=== PATIENT | female | born 1950 ===

== ENCOUNTER 2017-05-30 23:20 | Inpatient (IN) | payer MEDICARE, BC ==
[2017-05-30 23:20] VITALS: BMI 22.6
--- NOTE | 2017-05-30 23:54 | C.PDOC ---
History Of Present Illness 66 year old female presents to the ED c/o 5 day history of abdominal pain that she rates at 5/10 discomfort. Patient also reports not having any bowel movements for the past 5 days as well. Patient denies nausea, vomit, diarrhea. Time Seen by Provider: 05/30/17 23:53 Chief Complaint (Nursing): Abdominal Pain History Per: Patient History/Exam Limitations: no limitations Onset/Duration Of Symptoms: Days Current Symptoms Are (Timing): Worse Context: Other Severity: Severe Pain Scale Rating Of: 7 Location Of Pain/Discomfort: Diffuse Radiation Of Pain To:: None Quality Of Discomfort: Cramping, "Pain" Associated Symptoms: Constipation. denies: Nausea, Vomiting, Diarrhea Exacerbating Factors: None Alleviating Factors: None Last Bowel Movement: Days Ago Recent travel outside of the [place]: No Additional History Per: Family Abnormal Vaginal Bleeding: No Past Medical History Reviewed: Historical Data, Nursing Documentation, Vital Signs Vital Signs: Last Vital Signs Temp 97.4 F L 05/30/17 23:25 Pulse 99 H 05/31/17 02:27 Resp 20 05/31/17 02:27 BP 104/65 05/31/17 02:27 Pulse Ox 98 05/31/17 03:18 - Medical History PMH: Fractures (OLD FX.LEFT HAND), HTN, Hypothyroidism Surgical History: [place] [facility] [place] [facility] CORONAR ARTERIOGR-2 CATH (05/26/13) LT HEART ANGIOCARDIOGRAM (05/26/13) RT/LEFT HEART CARD CATH (05/26/13) Family History: States: No Known Family Hx - Social History Hx Alcohol Use: No Hx Substance Use: No Review Of Systems Constitutional: Negative for: Fever, Chills Eyes: Negative for: Vision Change ENT: Negative for: Throat Pain Cardiovascular: Negative for: Chest Pain Respiratory: Negative for: Shortness of Breath Gastrointestinal: Positive for: Abdominal Pain, Constipation. Negative for: Nausea, Vomiting, Diarrhea Genitourinary: Negative for: Dysuria, Hematuria Musculoskeletal: Negative for: Back Pain Skin: Negative for: Rash Neurological: Negative for: Weakness, Numbness Psych: Negative for: Anxiety Physical Exam - Physical Exam Appears: Non-toxic Skin: Warm, Dry, Jaundice Head: Normacephalic Eye(s): bilateral: Normal Inspection, Other (icteric sclera) Oral Mucosa: Moist Lips: Other (dry) Neck: Supple Chest: Symmetrical, Other (cabg scar) Cardiovascular: Rhythm Regular (tachycardic), No Murmur Respiratory: No Rales, No Rhonchi, No Wheezing Gastrointestinal/Abdominal: Soft, Tenderness (diffuse), Distention (diffuse), Guarding (voluntary), Rebound (mild) Rectal: No Blood Streaked Stool, No Mass, No Tenderness, Other (rectal vault empty, no stool of any color present ) Back: No CVA Tenderness Extremity: Normal ROM Extremity: Bilateral: Atraumatic Pulses: Left Dorsalis Pedis: Normal, Right Dorsalis Pedis: Normal Neurological/Psych: Oriented x3 Gait: Unable To Assess ED Course And Treatment - Laboratory Results Result Diagrams: 05/31/17 00:18 05/31/17 00:18 ECG: Interpreted By Me, Viewed By Me ECG Rhythm: Atrial Fibrillation (120), Nonspecific Changes (occ pvc's) O2 Sat by Pulse Oximetry: 98 (ON RA) Pulse Ox Interpretation: Normal - Radiology CXR: Interpreted by Me, Viewed By Me CXR Interpretation: Yes: Cardiomegaly, Other (vabg, mvr). No: Infiltrates, Fracture - CT Scan/US CT abd/pelvis Other Rad Studies (CT/US): Read By Radiologist, Radiology Report Reviewed CT/US Interpretation: EXAM: CT Abdomen and Pelvis With Intravenous Contrast. CLINICAL HISTORY: 66 years old, female; Pain; Abdominal pain; Generalized; Additional info: Diffuse abd pain. TECHNIQUE: Axial computed tomography images of the abdomen and pelvis with intravenous. contrast. All CT scans at this facility use one or more dose reduction techniques, viz.: automated. exposure control; ma/kV adjustment per patient size (including targeted exams where dose is. matched to indication; i.e. head); or iterative reconstruction technique. CONTRAST: 100 mL of [id number] administered intravenously. COMPARISON : No relevant prior studies available. FINDINGS: Lung bases: Calcified granuloma left lung base. Atelectasis right mid and lower lung. ABDOMEN: Liver: Unremarkable. No mass. Gallbladder and bile ducts: Unremarkable. No calcified stones. No ductal dilation. Pancreas: Unremarkable. No mass. No ductal dilation. Spleen: Unremarkable. No splenomegaly. Adrenals: Unremarkable. No mass. Kidneys and ureters: Scarring upper pole left kidney. Subcentimeter right renal cysts. No hydronephrosis. Stomach and bowel: Unremarkable. No obstruction. No mucosal thickening. Appendix: No findings to suggest acute appendicitis. PELVIS: Bladder: Bladder wall thickening with surrounding inflammation concerning for cystitis. Reproductive: 2.1 cm left ovarian cyst. Probable calcified uterine fibroids.ABDOMEN and PELVIS: Intraperitoneal space: Unremarkable. No free air. No significant fluid collection. Bones/joints: Median sternotomy. No acute fracture. No dislocation. Soft tissues: Multiple rectus sheath hematomas the largest of which measures 4 cm in thickness in. the left abdominal wall. The left-sided hematoma extends from just below the ribs to the pubic bone. Vasculature: 8 mm peripherally calcified splenic artery aneurysm. Lymph nodes: Unremarkable. No enlarged lymph nodes. IMPRESSION: 1. Bladder wall thickening with surrounding inflammation concerning for cystitis. 2. Multiple rectus sheath hematomas the largest of which measures 4 cm in thickness in the left. abdominal wall. The left-sided hematoma extends from just below the ribs to the pubic bone. Thank you for allowing us to participate in the care of your patient. Dictated and Authenticated by: Pelon Conn MD. 05/31/2017 3:05 AM Eastern Time ([place] & [place]) Progress Note: Plan: - Labs. - EKG. - VBG. - Morphine 1 mg IVP. - Protonix 40 mg IVP. - IV fluids. - UA. 3:[address] morris - icu - ok with icu admission Critical Care Time - Critical Care Note Total Time (in mins): 47 Documented critical care: time excludes all time spent performing seperately billable procedures. Disposition Discussed With : Jose Souza Comment: accepted the pt on his service and took over the care at 3:30 AM Doctor Will See Patient In The: ED Counseled Patient/Family Regarding: Studies Performed, Diagnosis - Disposition Disposition: HOSPITALIZED Disposition Time: 23:54 Condition: GUARDED Forms: [facility] ([place]) - POA Present On Arrival: Poor Glycemic Control - Clinical Impression Clinical Impression: Abdominal pain, Sepsis, UTI (urinary tract infection), Coumadin toxicity, Abdominal wall hematoma - Scribe Statement The provider has reviewed the documentation as recorded by the Scribe Kash Saul All medical record entries made by the Scribe were at my direction and personally dictated by me. I have reviewed the chart and agree that the record accurately reflects my personal performance of the history, physical exam, medical decision making, and the department course for this patient. I have also personally directed, reviewed, and agree with the discharge instructions and disposition. Decision To Admit - Pt Status Changed To: Hospital Disposition Of: Inpatient - Admit Certification Admit to Inpatient:: After my assessment, the patient will require hospitalization for at least two midnights. This is because of the severity of symptoms shown, intensity of services needed, and/or the medical risk in this patient being treated as an outpatient. - InPatient: Physician Admission Certification:: After my assessment, the patient will require hospitalization for at least two midnights. This is because of the severity of symptoms shown, intensity of services needed, and/or the medical risk in this patient being treated as an outpatient. - . Bed Request Type: ICU Admitting Physician: Jose Souza Patient Diagnosis: Abdominal pain, Sepsis, UTI (urinary tract infection), Coumadin toxicity, Abdominal wall hematoma
[2017-05-30] MEDS ORDERED: Sodium Chloride 0.9% 1,000 ML IV ONE (23:55)
[2017-05-31 00:27] LABS: BASO % 0.1 % (0.0-2.0); HEMOGLOBIN 8.8 g/dL (11.0-16.0); LYMPH # 1.4 K/uL (1.0-4.3); LYMPH % 5.9 % (20.0-40.0); MEAN CORPUSCULAR HEMOGLOBIN 32.1 pg (27.0-31.0); MEAN CORPUSCULAR HGB CONC 33.1 g/dL (33.0-37.0); MEAN PLATELET VOLUME 9.9 fL (7.2-11.7); MONO % 4.5 % (0.0-10.0); NEUT # 20.8 K/uL (1.8-7.0); NEUT % 89.5 % (50.0-75.0); PLATELET COUNT 248 K/uL (130-400); RBC 2.75 Mil/uL (3.80-5.20); RED CELL DISTRIBUTION WIDTH 14.1 % (11.5-14.5); WHITE BLOOD COUNT 23.3 K/uL (4.8-10.8)
[2017-05-31] MEDS ORDERED: Sodium Chloride 0.9% 1,000 ML ONE ×2 (00:35→01:12)
[2017-05-31] MEDS ORDERED: Morphine 4 MG/ML VIAL ONE (00:36)
[2017-05-31 00:38] LABS: ALBUMIN 4.2 g/dL (3.5-5.0); CALCIUM 9.4 mg/dl (8.6-10.4)
[2017-05-31 00:47] LABS: VENOUS BLOOD GAS BASE EXCESS -7.7 mmol/L (0.0-2.0); VENOUS BLOOD GAS PCO2 38 mmHg (40-60); VENOUS BLOOD GAS PO2 17 mm/Hg (30-55); VENOUS BLOOD PH 7.29 (7.32-7.43)
[2017-05-31] MEDS ORDERED: Piperacillin/Tazobact 3.375 gm 100 ML IVPB STA (00:48)
[2017-05-31 00:57] LABS: INR 12.4
[2017-05-31 00:59] LABS: PROTHROMBIN TIME 153.9 SECONDS (9.7-12.2)
[2017-05-31] MEDS ORDERED: Phytonadione 2.5 MG/0.5 TAB TAB PO STA (01:01)
[2017-05-31] MEDS ORDERED: Sodium Chloride 0.9% 1,000 ML IV ONE (01:03)
[2017-05-31] MEDS ORDERED: Piperacill/Tazo 3.375gm in Dex 3.375 GM/50 ML BAG IVPB STA (01:04)
[2017-05-31 01:24] LABS: LYMPHOCYTE 6 % (20-40); MONOCYTE 2 % (0-10); NEUTROPHIL 92 % (50-75); PLATELET ESTIMATE NORMAL (NORMAL); TOTAL CELLS COUNTED 100
[2017-05-31] MEDS ORDERED: Iodixanol 320 MG/ML 100 ML BOTTLE IV ONE (01:52)
[2017-05-31 03:15] LABS: SQUAMOUS EPITHIAL 8 /hpf (0-5); URINE BACTERIA RARE (<OCC); URINE BILIRUBIN NEGATIVE (NEGATIVE); URINE BLOOD NEGATIVE (NEGATIVE); URINE CLARITY Hazy (Clear); URINE COLOR Yellow (YELLOW); URINE GLUCOSE (UA) NORMAL (Normal); URINE LEUKOCYTE ESTERASE 2+ Leu/uL (Negative); URINE PROTEIN 1+ mg/dL (NEGATIVE); URINE UROBILINOGEN NORMAL mg/dL (0.2-1.0)
[2017-05-31] MEDS: Sodium Chloride 0.9% 1,000 ML IV SCH ×4 (04:05→20:33)
[2017-05-31 06:06] LABS: BASO % 0.1 % (0.0-2.0); HEMOGLOBIN 6.7 g/dL (11.0-16.0); LYMPH # 1.9 K/uL (1.0-4.3); LYMPH % 10.5 % (20.0-40.0); MEAN CELL VOLUME 96.1 fL (81.0-99.0); MEAN CORPUSCULAR HEMOGLOBIN 31.8 pg (27.0-31.0); MEAN CORPUSCULAR HGB CONC 33.1 g/dL (33.0-37.0); MEAN PLATELET VOLUME 10.1 fL (7.2-11.7); MONO # 0.8 K/uL (0.0-0.8); MONO % 4.5 % (0.0-10.0); NEUT # 15.7 K/uL (1.8-7.0); NEUT % 84.9 % (50.0-75.0); RBC 2.12 Mil/uL (3.80-5.20); RED CELL DISTRIBUTION WIDTH 14.5 % (11.5-14.5); WHITE BLOOD COUNT 18.5 K/uL (4.8-10.8)
[2017-05-31 06:23] LABS: ALBUMIN 3.2 g/dL (3.5-5.0); ALT/SGPT 18 U/L (9-52); AST/SGOT 32 U/L (14-36); BLOOD UREA NITROGEN 14 mg/dL (7-17); CALCIUM 8.1 mg/dl (8.6-10.4); GFR AFRICAN-AMERICAN > 60; GFR NON-AFRICAN AMERICAN > 60
[2017-05-31 08:06] LABS: B-TYPE NATRIURETIC PEPTIDE 1770 pg/mL (0-900)
[2017-05-31 08:49] LABS: IRON 72 ug/dL (37-170)
--- NOTE | 2017-05-31 08:58 | CP.PCM.CON ---
History of Present Illness - History of Present Illness History of Present Illness: 66 F on coumedin for mechanical mitral valve and h/o afib, came to hospital for c/o abd pain and swelling noticed for last 5 days, getting worse. C/o poor intake and constipation. Patient found to have INR of 15 and rectus sheath hematoma, clinically dry, elevated lactic acid and cystis on ct abd. Patent has admitted to ICU received 2 lit ivf, finished 1st unit ffp, initial hemoglobin 8.5 repeat 6.7 without hypotension or visible swelling post hydration likely form hemodiluation. Maintained vitals, but c/o pain in lower abd. Denies any new meds, nsaids, or change in dose of coumedin. PMH as above Allergies nkda Social denies smoking alocohol or illicit durgs Family history not contributory Meds as per the patient takes only coumedin 2mg Review of Systems - Review of Systems All systems: reviewed and no additional remarkable complaints except (HPI) Past Patient History - Past Medical History & Family History Past Medical History?: Yes - Past Social History Smoking Status: Never Smoked Alcohol: None Drugs: Denies Home Situation {Lives}: With Family Domestic Violence: Negative - CARDIAC Hx Cardiac Disorders: Yes Hx Hypertension: Yes - PULMONARY Hx Respiratory Disorders: No - NEUROLOGICAL Hx Neurological Disorder: Yes HX Cerebrovascular Accident: Yes Hx Dizziness: Yes - HEENT Hx HEENT Problems: No - RENAL Hx Chronic Kidney Disease: No - ENDOCRINE/METABOLIC Hx Endocrine Disorders: Yes Hx Hypothyroidism: Yes - HEMATOLOGICAL/ONCOLOGICAL Hx Blood Disorders: Yes Hx Blood Transfusion Reaction: Yes Hx Bruising: Yes - INTEGUMENTARY Hx Dermatological Problems: No - MUSCULOSKELETAL/RHEUMATOLOGICAL Hx Musculoskeletal Disorders: Yes Hx Falls: Yes Hx Fractures: Yes (OLD FX.LEFT HAND) - GASTROINTESTINAL Hx Gastrointestinal Disorders: No - GENITOURINARY/GYNECOLOGICAL Hx Genitourinary Disorders: No - PSYCHIATRIC Hx Psychophysiologic Disorder: No Hx Substance Use: No - SURGICAL HISTORY Hx Surgeries: Yes Hx Appendectomy: Yes Hx Open Heart Surgery: Yes - ANESTHESIA Hx Anesthesia: Yes Hx Anesthesia Reactions: No Hx Malignant Hyperthermia: No Meds Allergies/Adverse Reactions: Allergies Allergy/AdvReac Type Severity Reaction Status Date / Time No Known Allergies Allergy Verified 05/30/17 23:29 - Medications Medications: Current Medications Sodium Chloride (Sodium Chloride 0.9%) 1,000 mls @ 100 mls/hr IV .Q10H ONE Stop: 05/31/17 09:54 Last Admin: 05/31/17 00:41 Dose: 100 mls/hr Piperacillin Sod/Tazobactam (Sod 3.375 gm/ Sodium Chloride) 100 mls @ 200 mls/ hr IVPB Q8H [facility] PRN Reason: Protocol Sodium Chloride (Sodium Chloride 0.9%) 1,000 mls @ 125 mls/hr IV .Q8H [facility] Last Admin: 05/31/17 04:05 Dose: 125 mls/hr Pantoprazole Sodium (Protonix Inj) 40 mg IVP DAILY [facility] Physical Exam - Additional Findings Additional findings: * HEENT NANY * Neck supple * Chest Clear * CVS Regular on exam, no murmur * PA brusing noted on the skin in midabd, tender b/l left > right, bs decreased * Ext no edema * [employer]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 * Skin slight lower in turgor Results - Vital Signs Recent Vital Signs: Last Vital Signs Temp 98.3 F 05/31/17 08:00 Pulse 105 H 05/31/17 08:40 Resp 21 05/31/17 08:40 BP 111/67 05/31/17 07:47 Pulse Ox 100 05/31/17 08:40 - Labs Result Diagrams: 05/31/17 06:01 05/31/17 06:01 Labs: Laboratory Results - last 24 hr 05/31/17 05/31/17 05/31/17 00:18 00:18 00:18 WBC 23.3 H D RBC 2.75 L Hgb 8.8 L D Hct 26.7 L MCV 97.0 D MCH 32.1 H MCHC 33.1 RDW 14.1 Plt Count 248 MPV 9.9 Neut % (Auto) 89.5 H Lymph % (Auto) 5.9 L Stanley % (Auto) 4.5 Eos % (Auto) 0.0 Baso % (Auto) 0.1 Neut # (Auto) 20.8 H Lymph # (Auto) 1.4 Stanley # (Auto) 1.0 H Eos # (Auto) 0.0 Baso # (Auto) 0.0 Neutrophils % (Manual) 92 H Lymphocytes % (Manual) 6 L Monocytes % (Manual) 2 Platelet Estimate Normal RBC Morphology Normal PT 153.9 H* INR 12.4 APTT 95 H pO2 VBG pH VBG pCO2 VBG HCO3 VBG Total CO2 VBG O2 Sat (Calc) VBG Base Excess VBG Potassium Glucose Lactate Crit Value Called To Crit Value Called By Crit Value Read Back Blood Gas Notified Time Sodium 145 Potassium 4.8 Chloride 106 Carbon Dioxide 16 L Anion Gap 28 H BUN 14 Creatinine 1.3 H Est GFR ( Amer) 50 Est GFR (Non-Af Amer) 41 Random Glucose 188 H Lactic Acid Calcium 9.4 Phosphorus Magnesium Total Bilirubin 2.2 H AST 44 H ALT 10 Alkaline Phosphatase 69 NT-Pro-B Natriuret Pep Total Protein 8.2 Albumin 4.2 Globulin 4.0 H Albumin/Globulin Ratio 1.0 Lipase 86 Venous Blood Potassium Urine Color Urine Clarity Urine pH Ur Specific [place] Urine Protein Urine Glucose (UA) Urine Ketones Urine Blood Urine Nitrate Urine Bilirubin Urine Urobilinogen Ur Leukocyte Esterase Urine WBC (Auto) Urine RBC (Auto) Ur Squamous Epith Cells Urine Bacteria Stool Occult Blood Blood Type Antibody Screen 05/31/17 05/31/17 05/31/17 00:26 00:31 00:42 WBC RBC Hgb Hct MCV MCH MCHC RDW Plt Count MPV Neut % (Auto) Lymph % (Auto) Stanley % (Auto) Eos % (Auto) Baso % (Auto) Neut # (Auto) Lymph # (Auto) Stanley # (Auto) Eos # (Auto) Baso # (Auto) Neutrophils % (Manual) Lymphocytes % (Manual) Monocytes % (Manual) Platelet Estimate RBC Morphology PT INR APTT pO2 17 L VBG pH 7.29 L VBG pCO2 38 L VBG HCO3 16.8 VBG Total CO2 19.5 L VBG O2 Sat (Calc) 22.9 L VBG Base Excess -7.7 L VBG Potassium 4.7 Glucose 192 H Lactate 8.8 H* Crit Value Called To Dr mary Crit Value Called By Amy granados rt Crit Value Read Back Y Blood Gas Notified Time 47 Sodium 144.0 Potassium Chloride 108.0 H Carbon Dioxide Anion Gap BUN Creatinine Est GFR ( Amer) Est GFR (Non-Af Amer) Random Glucose Lactic Acid Calcium Phosphorus Magnesium Total Bilirubin AST ALT Alkaline Phosphatase NT-Pro-B Natriuret Pep Total Protein Albumin Globulin Albumin/Globulin Ratio Lipase Venous Blood Potassium 4.7 Urine Color Urine Clarity Urine pH Ur Specific [place] Urine Protein Urine Glucose (UA) Urine Ketones Urine Blood Urine Nitrate Urine Bilirubin Urine Urobilinogen Ur Leukocyte Esterase Urine WBC (Auto) Urine RBC (Auto) Ur Squamous Epith Cells Urine Bacteria Stool Occult Blood Negative Blood Type B POSITIVE Antibody Screen Positive 05/31/17 05/31/17 05/31/17 03:05 06:01 06:01 WBC 18.5 H RBC 2.12 L Hgb 6.7 L D Hct 20.4 L MCV 96.1 MCH 31.8 H MCHC 33.1 RDW 14.5 Plt Count 198 MPV 10.1 Neut % (Auto) 84.9 H Lymph % (Auto) 10.5 L Stanley % (Auto) 4.5 Eos % (Auto) 0.0 Baso % (Auto) 0.1 Neut # (Auto) 15.7 H Lymph # (Auto) 1.9 Stanley # (Auto) 0.8 Eos # (Auto) 0.0 Baso # (Auto) 0.0 Neutrophils % (Manual) Lymphocytes % (Manual) Monocytes % (Manual) Platelet Estimate RBC Morphology PT INR APTT pO2 VBG pH VBG pCO2 VBG HCO3 VBG Total CO2 VBG O2 Sat (Calc) VBG Base Excess VBG Potassium Glucose Lactate Crit Value Called To Crit Value Called By Crit Value Read Back Blood Gas Notified Time Sodium 144 Potassium 4.3 Chloride 111 H Carbon Dioxide 19 L Anion Gap 18 BUN 14 Creatinine 0.9 Est GFR ( Amer) > 60 Est GFR (Non-Af Amer) > 60 Random Glucose 120 H Lactic Acid Calcium 8.1 L Phosphorus 3.3 Magnesium 1.7 Total Bilirubin 2.0 H AST 32 ALT 18 Alkaline Phosphatase 50 NT-Pro-B Natriuret Pep 1770 H Total Protein 6.5 Albumin 3.2 L D Globulin 3.3 Albumin/Globulin Ratio 1.0 Lipase Venous Blood Potassium Urine Color Yellow Urine Clarity Hazy Urine pH 5.0 Ur Specific [place] 1.015 Urine Protein 1+ H Urine Glucose (UA) Normal Urine Ketones Negative Urine Blood Negative Urine Nitrate Negative Urine Bilirubin Negative Urine Urobilinogen Normal Ur Leukocyte Esterase 2+ H Urine WBC (Auto) 37 H Urine RBC (Auto) 7 H Ur Squamous Epith Cells 8 H Urine Bacteria Rare Stool Occult Blood Blood Type Antibody Screen 05/31/17 06:01 WBC RBC Hgb Hct MCV MCH MCHC RDW Plt Count MPV Neut % (Auto) Lymph % (Auto) Stanley % (Auto) Eos % (Auto) Baso % (Auto) Neut # (Auto) Lymph # (Auto) Stanley # (Auto) Eos # (Auto) Baso # (Auto) Neutrophils % (Manual) Lymphocytes % (Manual) Monocytes % (Manual) Platelet Estimate RBC Morphology PT INR APTT pO2 VBG pH VBG pCO2 VBG HCO3 VBG Total CO2 VBG O2 Sat (Calc) VBG Base Excess VBG Potassium Glucose Lactate Crit Value Called To Crit Value Called By Crit Value Read Back Blood Gas Notified Time Sodium Potassium Chloride Carbon Dioxide Anion Gap BUN Creatinine Est GFR ( Amer) Est GFR (Non-Af Amer) Random Glucose Lactic Acid 2.8 H Calcium Phosphorus Magnesium Total Bilirubin AST ALT Alkaline Phosphatase NT-Pro-B Natriuret Pep Total Protein Albumin Globulin Albumin/Globulin Ratio Lipase Venous Blood Potassium Urine Color Urine Clarity Urine pH Ur Specific [place] Urine Protein Urine Glucose (UA) Urine Ketones Urine Blood Urine Nitrate Urine Bilirubin Urine Urobilinogen Ur Leukocyte Esterase Urine WBC (Auto) Urine RBC (Auto) Ur Squamous Epith Cells Urine Bacteria Stool Occult Blood Blood Type Antibody Screen Assessment & Plan - Assessment and Plan (Free Text) Assessment: * Spontaneous Rectus sheath bleeding due to coumedin coagulopathy, reason for toxicity not clear * Suspected cystitis upon CT * Leucocytosis * Mechanical mitral valve, h/o afib Plan: * Supportive care * FFP, to bring inr bet 2.5-3.5 * PRBC * Empiric abx started due to cystitis on CT and leucocytosis with ua and culture sent. * See orders for detail.
[2017-05-31 08:59] LABS: % IRON SATURATION 31 (20-55); TOTAL IRON BINDING CAPACITY 232 ug/dL (250-450)
[2017-05-31 09:03] LABS: FOLATE > 20.0 ng/mL
[2017-05-31] MEDS: Piperacillin/Tazobact 3.375 GM in Sodium Chloride 100 ML IVPB SCH ×2 (10:03→17:05)
--- NOTE | 2017-05-31 11:40 | RAD ---
HISTORY: Constipation. COMPARISON: Comparison made with CT scan abdomen pelvis 05/31/2017 at 2:03 a.m. FINDINGS: BOWEL: No evidence of acute mechanical bowel obstruction. Amount of stool was seen throughout the cecum ascending and transverse colon on prior CT scan of the abdomen and pelvis less well seen on this study as compared to prior CT BONES: Chronic anterior wedge compression deformity of the L1 segment less well visualized on this exam as compared to high-resolution CT scan. OTHER FINDINGS: Interval placement Dang catheter. IMPRESSION: No evidence acute mechanical bowel obstruction. Moderate amount of stool is seen within the cecum at ascending and transverse colon are less well visualized on the current study.
[2017-05-31] MEDS: Oxycodone/Acetaminophen 5/325 mg Tab PO PRN ×2 (13:55→21:31)
[2017-05-31 15:21] LABS: HEMOGLOBIN 7.3 g/dL (11.0-16.0); MEAN CELL VOLUME 90.6 fL (81.0-99.0); MEAN CORPUSCULAR HEMOGLOBIN 31.2 pg (27.0-31.0); MEAN CORPUSCULAR HGB CONC 34.4 g/dL (33.0-37.0); MEAN PLATELET VOLUME 9.1 fL (7.2-11.7); RBC 2.34 Mil/uL (3.80-5.20); RED CELL DISTRIBUTION WIDTH 16.5 % (11.5-14.5)
--- NOTE | 2017-05-31 15:21 | CT ---
PROCEDURE: CT scan abdomen and pelvis dated 05/31/2017 HISTORY: Diffuse abdominal pain COMPARISON: None. TECHNIQUE: Contiguous axial images of the abdomen and pelvis performed following intravenous injection of approximately 100 cc Visipaque 320 contrast material. Additional 2 beast sagittal and coronal reformats generated. Radiation dose: Total exam DLP = This CT exam was performed using one or more of the following dose reduction techniques: Automated exposure control, adjustment of the mA and/or kV according to patient size, and/or use of iterative reconstruction technique. FINDINGS: LOWER THORAX: Vague patchy opacity seen in the right lung base may represent atelectasis however developing lower lobe infiltrate to be excluded with followup radiographs. Cardiomegaly with enlarged left atrium. LIVER: The liver exhibits normal size and attenuation pattern without mass collection or calcification. Portal and splenic veins are opacified. There is a small discrete elliptical shaped low-attenuation structure in the Morison's pouch region representing an exophytic cyst arising from the inferomedial aspect of the liver. . This focus measures approximately 3 cm x 1.4 cm (with Hounsfield units ranging between made single digits to low 20s . Followup interval recommended to assess stability GALLBLADDER AND BILE DUCTS: Gallbladder is physiologically distended. Cholelithiasis. PANCREAS: The pancreas appears slightly atrophic. No obvious pancreatic masses collections or calcifications. SPLEEN: Spleen exhibits normal size though somewhat lobular contour. . There is a small area of increased attenuation along crotch of a lobule that could represent volume averaging artifact. . ADRENALS: No adrenal lesions. KIDNEYS AND URETERS: Kidneys demonstrate symmetric nephrograms. No evidence of nephrolithiasis or hydronephrosis. There appear to be at least 3 tiny low-attenuation foci right kidney which statistically likely represent cysts. Renal ultrasound followup could confirm. BLADDER: Urinary bladder exhibits thick-walled appearance with adjacent surrounding infiltration. Findings on most likely represent a cystitis however correlation with urinalysis recommended. REPRODUCTIVE: Apparent calcified uterine fibroid. . There is a small cystic focus in the left aspect of the pelvis possibly representing an adnexal cyst measuring 2.1 x 2.0 cm. Pelvic ultrasound followup could be performed to confirm. APPENDIX: Appendix is not seen with certainty. BOWEL: Evaluation of the bowel is limited due to the lack of oral contrast material. Stomach is distended with food debris liquid and air. Visualized loops of small bowel exhibit normal contour and caliber. No evidence acute mechanical small bowel obstruction. Stool and air seen throughout the large bowel. No definitive abnormal mural wall thickening. PERITONEUM: Unremarkable. No fluid collection. No free air. Note made of what appears to represent multiple abdominal rectus sheath hematomas. There is a large somewhat lobulated hematoma seen in the mid to lower portion of the left rectus sheath that measures approximately 14.5 cm cc x 7.12 cm trans by 5.0 cm AP. There is a apparent right-sided rectus sheath hematoma in the pelvis region that measures approximately 7.5 cm cc x 5.1 cm trans x 4.0 cm AP LYMPH NODES: Unremarkable. No enlarged lymph nodes. VASCULATURE: . There is a small splenic artery aneurysm No evidence of abdominal aortic or iliac artery aneurysms. BONES: Chronic anterior wedge compression deformity of the L1 segment. Mild multilevel degenerative spondylosis of the lower thoracic and lumbar spine. OTHER FINDINGS: None. IMPRESSION: There are multiple rectus sheath hematomas as described of uncertain etiology. Is there a history of coagulopathy this patient? Findings consistent with a cystitis with root bladder wall thickening and surrounding infiltration. Correlation with urinalysis. Probable small on cyst right kidney. Left ovarian cyst. Calcified uterine fibroid felt be present. Consider followup pelvic ultrasound Cholelithiasis. Questionable exophytic cyst arising from the inferomedial aspect of the liver extending into Osborne's pouch region. Followup interval recommended to assess stability. Note this report was placed in PA review folder folder for followup
--- NOTE | 2017-05-31 15:36 | RAD ---
PROCEDURE: CHEST RADIOGRAPH, 1 VIEW HISTORY: CODE SEPSIS COMPARISON: Comparison chest dated 01/30/2012 FINDINGS: LUNGS: Poor inspiration with low lung volumes, crowded bronchovascular markings and mild bibasilar atelectasis. Questionable small right effusion. PLEURA: No pneumothorax or pleural fluid seen. CARDIOVASCULAR: Sternotomy wires and prostatic mitral valve again noted. Cardiomegaly Aorta is ectatic and uncoiled. OSSEOUS STRUCTURES: No significant abnormalities. VISUALIZED UPPER ABDOMEN: Normal. OTHER FINDINGS: None. IMPRESSION: Poor inspiration with low lung volumes, crowded bronchovascular markings and mild bibasilar atelectasis.
[2017-05-31 15:44] LABS: INR 1.9
[2017-05-31] MEDS ORDERED: Sodium Chloride 0.9% 1,000 ML IV SCH (20:47)
--- NOTE | 2017-05-31 20:54 | CP.PCM.HP ---
History of Present Illness - History of Present Illness History of Present Illness: cc: abdominal pain x 1 week HPI: Pt is a 66 yo female At the ER, pt found to have rectus sheath hematoma on CT, but no GI obstruction noted. Pt appeared to be pale, and CBC showed pt had a hgb of 8.3 which dipped to 6.7 after hydration. 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 This would prob account for the rectus sheath hematoma found on CT of the abdomen and pelvis. Pt was admitted to ICU and coagulopathy was reversed with 2 units of FFP and vit K. Nevertheless pt still complained of pain from the hematoma and ice was applied to area to prevent more blood accumulation. > Pt also suspected of having chronic cystitis 2mdr tho thickened bladder garcia. Pt was given Zosyn 3.375 g q8 (creat clarance 43) and malone-cultured. Pt appeared to be stable and noted to have consumed at least part of her meal. Present on Admission - Present on Admission Any Indicators Present on Admission: Yes History of DVT/PE: Yes History of Uncontrolled Diabetes: No Urinary Catheter: No Decubitus Ulcer Present: No Review of Systems - Review of Systems Systems not reviewed;Unavailable: Unstable Vital Signs All systems: reviewed and no additional remarkable complaints except Review of Systems: borderline hypotensive - Constitutional Constitutional: Anorexia, Lethargy - Gastrointestinal Gastrointestinal: Abdominal Pain, Bloating, Cramping, Early Satiety - Genitourinary Genitourinary: Difficulty Urinating - Neurological Neurological: Abnormal Speech - Psychiatric Psychiatric: Confusion, Memory Loss Past Patient History - Infectious Disease Hx of Infectious Diseases: None - Tetanus Immunizations Tetanus Immunization: Unknown - Past Medical History & Family History Past Medical History?: Yes - Past Social History Smoking Status: Never Smoked Chewing Tobacco Use: No Cigar Use: No Alcohol: None Drugs: Denies Home Situation {Lives}: With Family Domestic Violence: Negative - CARDIAC Hx Cardiac Disorders: Yes Hx Hypertension: Yes Other/Comment: 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 - PULMONARY Hx Respiratory Disorders: No - NEUROLOGICAL Hx Neurological Disorder: Yes Hx Alzheimer's Disease: Yes (?) HX Cerebrovascular Accident: Yes Hx Dementia: Yes Hx Dizziness: Yes - HEENT Hx HEENT Problems: No - RENAL Hx Chronic Kidney Disease: No - ENDOCRINE/METABOLIC Hx Endocrine Disorders: Yes Hx Hypothyroidism: Yes - HEMATOLOGICAL/ONCOLOGICAL Hx Blood Disorders: Yes Hx Blood Transfusion Reaction: Yes Hx Bruising: Yes - INTEGUMENTARY Hx Dermatological Problems: No - MUSCULOSKELETAL/RHEUMATOLOGICAL Hx Musculoskeletal Disorders: Yes Hx Falls: Yes Hx Fractures: Yes (OLD FX.LEFT HAND) - GASTROINTESTINAL Hx Gastrointestinal Disorders: No - GENITOURINARY/GYNECOLOGICAL Hx Genitourinary Disorders: No - PSYCHIATRIC Hx Psychophysiologic Disorder: No Hx Substance Use: No - SURGICAL HISTORY Hx Surgeries: Yes Hx Appendectomy: Yes Hx Open Heart Surgery: Yes - ANESTHESIA Hx Anesthesia: Yes Hx Anesthesia Reactions: No Hx Malignant Hyperthermia: No Meds Allergies/Adverse Reactions: Allergies Allergy/AdvReac Type Severity Reaction Status Date / Time No Known Allergies Allergy Verified 05/30/17 23:29 Physical Exam - Constitutional Appears: No Acute Distress - Head Exam Head Exam: NORMAL INSPECTION, NORMOCEPHALIC - Eye Exam Eye Exam: Normal appearance Pupil Exam: NORMAL ACCOMODATION - ENT Exam ENT Exam: Mucous Membranes Moist - Neck Exam Neck exam: Positive for: Normal Inspection - Respiratory Exam Respiratory Exam: NORMAL BREATHING PATTERN - Cardiovascular Exam Cardiovascular Exam: REGULAR RHYTHM - GI/Abdominal Exam GI & Abdominal Exam: Hypoactive Bowel Sounds - Rectal Exam Rectal Exam: Deferred - Exam Exam: NORMAL INSPECTION External exam: NORMAL EXTERNAL EXAM - Extremities Exam Extremities exam: Positive for: normal inspection Results - Vital Signs Recent Vital Signs: Last Vital Signs Temp 98.5 F 05/31/17 20:00 Pulse 95 H 05/31/17 20:00 Resp 18 05/31/17 20:00 BP 117/70 05/31/17 19:47 Pulse Ox 99 05/31/17 20:00 - Labs Result Diagrams: 06/01/17 16:57 06/01/17 06:34 Labs: Laboratory Results - last 24 hr 05/31/17 05/31/17 05/31/17 00:18 00:18 00:18 WBC 23.3 H D RBC 2.75 L Hgb 8.8 L D Hct 26.7 L MCV 97.0 D MCH 32.1 H MCHC 33.1 RDW 14.1 Plt Count 248 MPV 9.9 Neut % (Auto) 89.5 H Lymph % (Auto) 5.9 L [place] % (Auto) 4.5 Eos % (Auto) 0.0 Baso % (Auto) 0.1 Neut # (Auto) 20.8 H Lymph # (Auto) 1.4 [place] # (Auto) 1.0 H Eos # (Auto) 0.0 Baso # (Auto) 0.0 Neutrophils % (Manual) 92 H Lymphocytes % (Manual) 6 L Monocytes % (Manual) 2 Platelet Estimate Normal RBC Morphology Normal PT 153.9 H* INR 12.4 APTT 95 H pO2 VBG pH VBG pCO2 VBG HCO3 VBG Total CO2 VBG O2 Sat (Calc) VBG Base Excess VBG Potassium Glucose Lactate Crit Value Called To Crit Value Called By Crit Value Read Back Blood Gas Notified Time Sodium 145 Potassium 4.8 Chloride 106 Carbon Dioxide 16 L Anion Gap 28 H BUN 14 Creatinine 1.3 H Est GFR ( Amer) 50 Est GFR (Non-Af Amer) 41 Random Glucose 188 H Lactic Acid Calcium 9.4 Phosphorus Magnesium Iron TIBC % Saturation Total Bilirubin 2.2 H AST 44 H ALT 10 Alkaline Phosphatase 69 NT-Pro-B Natriuret Pep Total Protein 8.2 Albumin 4.2 Globulin 4.0 H Albumin/Globulin Ratio 1.0 Lipase 86 Vitamin B12 Folate Venous Blood Potassium Urine Color Urine Clarity Urine pH Ur Specific [place] Urine Protein Urine Glucose (UA) Urine Ketones Urine Blood Urine Nitrate Urine Bilirubin Urine Urobilinogen Ur Leukocyte Esterase Urine WBC (Auto) Urine RBC (Auto) Ur Squamous Epith Cells Urine Bacteria Stool Occult Blood Blood Type Antibody Screen Antibody Identification Antigen Identification 05/31/17 05/31/17 05/31/17 00:26 00:31 00:42 WBC RBC Hgb Hct MCV MCH MCHC RDW Plt Count MPV Neut % (Auto) Lymph % (Auto) [place] % (Auto) Eos % (Auto) Baso % (Auto) Neut # (Auto) Lymph # (Auto) [place] # (Auto) Eos # (Auto) Baso # (Auto) Neutrophils % (Manual) Lymphocytes % (Manual) Monocytes % (Manual) Platelet Estimate RBC Morphology PT INR APTT pO2 17 L VBG pH 7.29 L VBG pCO2 38 L VBG HCO3 16.8 VBG Total CO2 19.5 L VBG O2 Sat (Calc) 22.9 L VBG Base Excess -7.7 L VBG Potassium 4.7 Glucose 192 H Lactate 8.8 H* Crit Value Called To Dr sapira Crit Value Called By Amy granados rt Crit Value Read Back Y Blood Gas Notified Time 47 Sodium 144.0 Potassium Chloride 108.0 H Carbon Dioxide Anion Gap BUN Creatinine Est GFR ( Amer) Est GFR (Non-Af Amer) Random Glucose Lactic Acid Calcium Phosphorus Magnesium Iron TIBC % Saturation Total Bilirubin AST ALT Alkaline Phosphatase NT-Pro-B Natriuret Pep Total Protein Albumin Globulin Albumin/Globulin Ratio Lipase Vitamin B12 Folate Venous Blood Potassium 4.7 Urine Color Urine Clarity Urine pH Ur Specific [place] Urine Protein Urine Glucose (UA) Urine Ketones Urine Blood Urine Nitrate Urine Bilirubin Urine Urobilinogen Ur Leukocyte Esterase Urine WBC (Auto) Urine RBC (Auto) Ur Squamous Epith Cells Urine Bacteria Stool Occult Blood Negative Blood Type B POSITIVE Antibody Screen Positive Antibody Identification Anti Fyb Antigen Identification Fyb Antigen - NEGATIVE 05/31/17 05/31/17 05/31/17 03:05 06:01 06:01 WBC 18.5 H RBC 2.12 L Hgb 6.7 L D Hct 20.4 L MCV 96.1 MCH 31.8 H MCHC 33.1 RDW 14.5 Plt Count 198 MPV 10.1 Neut % (Auto) 84.9 H Lymph % (Auto) 10.5 L [place] % (Auto) 4.5 Eos % (Auto) 0.0 Baso % (Auto) 0.1 Neut # (Auto) 15.7 H Lymph # (Auto) 1.9 [place] # (Auto) 0.8 Eos # (Auto) 0.0 Baso # (Auto) 0.0 Neutrophils % (Manual) Lymphocytes % (Manual) Monocytes % (Manual) Platelet Estimate RBC Morphology PT INR APTT pO2 VBG pH VBG pCO2 VBG HCO3 VBG Total CO2 VBG O2 Sat (Calc) VBG Base Excess VBG Potassium Glucose Lactate Crit Value Called To Crit Value Called By Crit Value Read Back Blood Gas Notified Time Sodium 144 Potassium 4.3 Chloride 111 H Carbon Dioxide 19 L Anion Gap 18 BUN 14 Creatinine 0.9 Est GFR ( Amer) > 60 Est GFR (Non-Af Amer) > 60 Random Glucose 120 H Lactic Acid Calcium 8.1 L Phosphorus 3.3 Magnesium 1.7 Iron TIBC % Saturation Total Bilirubin 2.0 H AST 32 ALT 18 Alkaline Phosphatase 50 NT-Pro-B Natriuret Pep 1770 H Total Protein 6.5 Albumin 3.2 L D Globulin 3.3 Albumin/Globulin Ratio 1.0 Lipase Vitamin B12 608 Folate > 20.0 Venous Blood Potassium Urine Color Yellow Urine Clarity Hazy Urine pH 5.0 Ur Specific [place] 1.015 Urine Protein 1+ H Urine Glucose (UA) Normal Urine Ketones Negative Urine Blood Negative Urine Nitrate Negative Urine Bilirubin Negative Urine Urobilinogen Normal Ur Leukocyte Esterase 2+ H Urine WBC (Auto) 37 H Urine RBC (Auto) 7 H Ur Squamous Epith Cells 8 H Urine Bacteria Rare Stool Occult Blood Blood Type Antibody Screen Antibody Identification Antigen Identification 05/31/17 05/31/17 05/31/17 06:01 08:24 15:19 WBC 13.0 H RBC 2.34 L Hgb 7.3 L Hct 21.2 L MCV 90.6 D MCH 31.2 H MCHC 34.4 RDW 16.5 H Plt Count 153 MPV 9.1 Neut % (Auto) Lymph % (Auto) [place] % (Auto) Eos % (Auto) Baso % (Auto) Neut # (Auto) Lymph # (Auto) [place] # (Auto) Eos # (Auto) Baso # (Auto) Neutrophils % (Manual) Lymphocytes % (Manual) Monocytes % (Manual) Platelet Estimate RBC Morphology PT INR APTT pO2 VBG pH VBG pCO2 VBG HCO3 VBG Total CO2 VBG O2 Sat (Calc) VBG Base Excess VBG Potassium Glucose Lactate Crit Value Called To Crit Value Called By Crit Value Read Back Blood Gas Notified Time Sodium Potassium Chloride Carbon Dioxide Anion Gap BUN Creatinine Est GFR ( Amer) Est GFR (Non-Af Amer) Random Glucose Lactic Acid 2.8 H Calcium Phosphorus Magnesium Iron 72 TIBC 232 L % Saturation 31 Total Bilirubin AST ALT Alkaline Phosphatase NT-Pro-B Natriuret Pep Total Protein Albumin Globulin Albumin/Globulin Ratio Lipase Vitamin B12 Folate Venous Blood Potassium Urine Color Urine Clarity Urine pH Ur Specific [place] Urine Protein Urine Glucose (UA) Urine Ketones Urine Blood Urine Nitrate Urine Bilirubin Urine Urobilinogen Ur Leukocyte Esterase Urine WBC (Auto) Urine RBC (Auto) Ur Squamous Epith Cells Urine Bacteria Stool Occult Blood Blood Type Antibody Screen Antibody Identification Antigen Identification 05/31/17 15:19 WBC RBC Hgb Hct MCV MCH MCHC RDW Plt Count MPV Neut % (Auto) Lymph % (Auto) [place] % (Auto) Eos % (Auto) Baso % (Auto) Neut # (Auto) Lymph # (Auto) [place] # (Auto) Eos # (Auto) Baso # (Auto) Neutrophils % (Manual) Lymphocytes % (Manual) Monocytes % (Manual) Platelet Estimate RBC Morphology PT 22.0 H D INR 1.9 D APTT 41 H D pO2 VBG pH VBG pCO2 VBG HCO3 VBG Total CO2 VBG O2 Sat (Calc) VBG Base Excess VBG Potassium Glucose Lactate Crit Value Called To Crit Value Called By Crit Value Read Back Blood Gas Notified Time Sodium Potassium Chloride Carbon Dioxide Anion Gap BUN Creatinine Est GFR ( Amer) Est GFR (Non-Af Amer) Random Glucose Lactic Acid Calcium Phosphorus Magnesium Iron TIBC % Saturation Total Bilirubin AST ALT Alkaline Phosphatase NT-Pro-B Natriuret Pep Total Protein Albumin Globulin Albumin/Globulin Ratio Lipase Vitamin B12 Folate Venous Blood Potassium Urine Color Urine Clarity Urine pH Ur Specific [place] Urine Protein Urine Glucose (UA) Urine Ketones Urine Blood Urine Nitrate Urine Bilirubin Urine Urobilinogen Ur Leukocyte Esterase Urine WBC (Auto) Urine RBC (Auto) Ur Squamous Epith Cells Urine Bacteria Stool Occult Blood Blood Type Antibody Screen Antibody Identification Antigen Identification
[2017-05-31] MEDS ORDERED: Dextrose 5%/0.9% NS 1,000 ML IV SCH (21:00)
[2017-06-01] MEDS: Piperacillin/Tazobact 3.375 GM in Sodium Chloride 100 ML IVPB SCH ×3 (01:01→17:58)
[2017-06-01 06:44] LABS: BASO # 0.1 K/uL (0.0-0.2); BASO % 0.4 % (0.0-2.0); EOS # 0.1 K/uL (0.0-0.7); EOS % 0.6 % (0.0-4.0); HEMOGLOBIN 8.9 g/dL (11.0-16.0); LYMPH # 1.3 K/uL (1.0-4.3); LYMPH % 9.7 % (20.0-40.0); MEAN CELL VOLUME 89.4 fL (81.0-99.0); MEAN CORPUSCULAR HEMOGLOBIN 30.8 pg (27.0-31.0); MEAN CORPUSCULAR HGB CONC 34.5 g/dL (33.0-37.0); MEAN PLATELET VOLUME 9.5 fL (7.2-11.7); MONO # 0.7 K/uL (0.0-0.8); MONO % 5.7 % (0.0-10.0); NEUT # 10.9 K/uL (1.8-7.0); NEUT % 83.6 % (50.0-75.0); PLATELET COUNT 157 K/uL (130-400); RBC 2.89 Mil/uL (3.80-5.20); RED CELL DISTRIBUTION WIDTH 15.9 % (11.5-14.5)
[2017-06-01 06:52] LABS: INR 1.9; PROTHROMBIN TIME 21.2 SECONDS (9.7-12.2)
[2017-06-01 08:00] LABS: B-TYPE NATRIURETIC PEPTIDE 4740 pg/mL (0-900)
[2017-06-01 08:01] LABS: ALB/GLOB RATIO 0.9 (1.0-2.1); ALBUMIN 3.1 g/dL (3.5-5.0); ALT/SGPT 20 U/L (9-52); AST/SGOT 38 U/L (14-36); BLOOD UREA NITROGEN 11 mg/dL (7-17); CALCIUM 8.2 mg/dl (8.6-10.4); GFR AFRICAN-AMERICAN > 60; GFR NON-AFRICAN AMERICAN > 60
[2017-06-01 08:05] LABS: BASOPHIL 1 % (0-2); EOSINOPHIL 1 % (0-4); LYMPHOCYTE 11 % (20-40); MONOCYTE 6 % (0-10); NEUTROPHIL 81 % (50-75); PLATELET ESTIMATE NORMAL (NORMAL); TOTAL CELLS COUNTED 100
[2017-06-01 08:06] LABS: ANISOCYTOSIS SLIGHT; LARGE PLATELETS PRESENT
[2017-06-01] MEDS: Oxycodone/Acetaminophen 5/325 mg Tab PO PRN ×2 (08:52→18:02)
[2017-06-01] MEDS ORDERED: Potassium Chloride 20 mEq ER Tab PO ONE (09:11)
--- NOTE | 2017-06-01 09:23 | CP.CCUPN ---
<Lolly Flannery - Last Filed: 06/01/17 13:48> CCU Subjective - Physician Review Subjective (Free Text): 06/01/17 09:23 Patient seen and examined at bedside. Complaining of abdominal pain. Appetite decreased. Offers no other complaints. Still no bowel movement. Denies headaches , dizziness, cp, palpitations, sob, urinary symptoms. CCU Objective - Vital Signs / Intake & Output Vital Signs (Last 4 hours): Vital Signs Temp Pulse Resp BP Pulse Ox 06/01/17 08:02 99 H 22 121/59 L 100 06/01/17 08:00 98.7 F 95 H 25 H 121/59 L 96 06/01/17 07:53 95 H 18 125/59 L 99 06/01/17 07:00 92 H 22 100 06/01/17 06:53 129/55 L 06/01/17 06:00 94 H 19 100 06/01/17 05:53 127/60 Intake and Output (Last 8hrs): Intake & Output 05/31/17 06/01/17 06/01/17 22:59 06:59 14:59 Intake Total 1100 1085 140 Output Total 127 220 120 Balance 973 865 20 Weight 50.122 kg Intake: Intake, IV Amount 950 520 140 Right Wrist 950 520 140 Oral 150 240 Blood Product 0 325 Red Blood Cells Cpd As1 0 325 Lr Unit [id number] Output: Urine 127 220 120 Urethral (Garcia) 127 220 120 Other: # Bowel Movements 0 - Physical Exam Head: Positive for: Atraumatic, Normocephalic Pupils: Positive for: PERRL Extroacular Muscles: Positive for: EOMI Conjunctiva: Positive for: Normal Mouth: Positive for: Moist Mucous Membranes Neck: Positive for: Normal Range of Motion Respiratory/Chest: Positive for: Clear to Auscultation, Good Air Exchange. Negative for: Respiratory Distress Cardiovascular: Positive for: Normal S1, S2, Tachycardic Abdomen: Positive for: Tenderness (Lower abdomen), Normal Bowel Sounds, Guarding Upper Extremity: Positive for: Normal Inspection Lower Extremity: Positive for: Normal Inspection Skin: Positive for: Warm, Dry, Normal Color Psychiatric: Positive for: Alert, Oriented x 3 - Medications Active Medications: Active Medications Generic Name Dose Route Start Last Admin Trade Name Freq PRN Reason Stop Dose Admin Docusate Sodium 100 mg 06/01/17 10:00 Colace PO BID SNATOS Piperacillin Sod/Tazobactam 100 mls @ 200 mls/hr 05/31/17 10:00 06/01/17 01: 01 Sod 3.375 gm/ Sodium Chloride IVPB 200 mls/hr Q8H SANTOS Administration Protocol Dextrose/Sodium Chloride 1,000 mls @ 70 mls/hr 05/31/17 21:00 05/31/17 20:58 Dextrose 5%/0.9% Ns 1000 Ml IV 70 mls/hr .[id number] SANTOS Administration Oxycodone/Acetaminophen 1 tab 05/31/17 13:44 06/01/17 08:52 Percocet 5/325 Mg Tab PO 06/03/17 13:45 1 tab Q6H PRN Administration pain Pantoprazole Sodium 40 mg 05/31/17 10:00 05/31/17 09:12 Protonix Inj IVP 40 mg DAILY SANTOS Administration - Patient Studies Lab Studies: Microbiology Studies 05/31/17 04:05 Urine Culture - Final Urine,Garcia Gram Negative Devon 05/31/17 01:54 Blood Culture - Preliminary Blood NO GROWTH AFTER 24 HOURS 05/31/17 01:54 Blood Culture - Preliminary Blood NO GROWTH AFTER 24 HOURS Lab Studies 06/01/17 06/01/17 06/01/17 Range/Units 06:39 06:34 06:34 WBC (4.8-10.8) K/uL RBC (3.80-5.20) Mil/uL Hgb (11.0-16.0) g/dL Hct (34.0-47.0) % MCV (81.0-99.0) fL MCH (27.0-31.0) pg MCHC (33.0-37.0) g/dL RDW (11.5-14.5) % Plt Count (130-400) K/uL MPV (7.2-11.7) fL Neut % (Auto) (50.0-75.0) % Lymph % (Auto) (20.0-40.0) % Richardson % (Auto) (0.0-10.0) % Eos % (Auto) (0.0-4.0) % Baso % (Auto) (0.0-2.0) % Neut # (Auto) (1.8-7.0) K/uL Lymph # (Auto) (1.0-4.3) K/uL Richardson # (Auto) (0.0-0.8) K/uL Eos # (Auto) (0.0-0.7) K/uL Baso # (Auto) (0.0-0.2) K/uL Neutrophils % (Manual) (50-75) % Lymphocytes % (Manual) (20-40) % Monocytes % (Manual) (0-10) % Eosinophils % (Manual) (0-4) % Basophils % (Manual) (0-2) % Platelet Estimate (NORMAL) Large Platelets Anisocytosis (manual) PT 21.2 H (9.7-12.2) SECONDS INR 1.9 APTT 35 H D (21-34) SECONDS Sodium 144 (132-148) mmol/L Potassium 3.5 L (3.6-5.2) mmol/L Chloride 113 H (98-107) mmol/L Carbon Dioxide 20 L (22-30) mmol/L Anion Gap 15 (10-20) BUN 11 (7-17) mg/dL Creatinine 0.7 (0.7-1.2) mg/dL Est GFR ( Amer) > 60 Est GFR (Non-Af Amer) > 60 Random Glucose 101 (65-105) mg/dL Lactic Acid 1.4 (0.7-2.1) mmol/L Calcium 8.2 L (8.6-10.4) mg/dl Phosphorus 2.1 L (2.5-4.5) mg/dL Magnesium 1.8 (1.6-2.3) mg/dL Total Bilirubin 3.8 H (0.2-1.3) mg/dL AST 38 H (14-36) U/L ALT 20 (9-52) U/L Alkaline Phosphatase 50 (38-126) U/L NT-Pro-B Natriuret Pep 4740 H (0-900) pg/mL Total Protein 6.4 (6.3-8.3) g/dL Albumin 3.1 L (3.5-5.0) g/dL Globulin 3.4 (2.2-3.9) gm/dL Albumin/Globulin Ratio 0.9 L (1.0-2.1) Blood Type Antibody Screen Antibody Identification Antigen Identification 06/01/17 05/31/17 05/31/17 Range/Units 06:34 15:19 15:19 WBC 13.0 H 13.0 H (4.8-10.8) K/uL RBC 2.89 L 2.34 L (3.80-5.20) Mil/uL Hgb 8.9 L 7.3 L (11.0-16.0) g/dL Hct 25.9 L 21.2 L (34.0-47.0) % MCV 89.4 90.6 D (81.0-99.0) fL MCH 30.8 31.2 H (27.0-31.0) pg MCHC 34.5 34.4 (33.0-37.0) g/dL RDW 15.9 H 16.5 H (11.5-14.5) % Plt Count 157 153 (130-400) K/uL MPV 9.5 9.1 (7.2-11.7) fL Neut % (Auto) 83.6 H (50.0-75.0) % Lymph % (Auto) 9.7 L (20.0-40.0) % Richardson % (Auto) 5.7 (0.0-10.0) % Eos % (Auto) 0.6 (0.0-4.0) % Baso % (Auto) 0.4 (0.0-2.0) % Neut # (Auto) 10.9 H (1.8-7.0) K/uL Lymph # (Auto) 1.3 (1.0-4.3) K/uL Richardson # (Auto) 0.7 (0.0-0.8) K/uL Eos # (Auto) 0.1 (0.0-0.7) K/uL Baso # (Auto) 0.1 (0.0-0.2) K/uL Neutrophils % (Manual) 81 H (50-75) % Lymphocytes % (Manual) 11 L (20-40) % Monocytes % (Manual) 6 (0-10) % Eosinophils % (Manual) 1 (0-4) % Basophils % (Manual) 1 (0-2) % Platelet Estimate Normal (NORMAL) Large Platelets Present Anisocytosis (manual) Slight PT 22.0 H D (9.7-12.2) SECONDS INR 1.9 D APTT 41 H D (21-34) SECONDS Sodium (132-148) mmol/L Potassium (3.6-5.2) mmol/L Chloride (98-107) mmol/L Carbon Dioxide (22-30) mmol/L Anion Gap (10-20) BUN (7-17) mg/dL Creatinine (0.7-1.2) mg/dL Est GFR ( Amer) Est GFR (Non-Af Amer) Random Glucose (65-105) mg/dL Lactic Acid (0.7-2.1) mmol/L Calcium (8.6-10.4) mg/dl Phosphorus (2.5-4.5) mg/dL Magnesium (1.6-2.3) mg/dL Total Bilirubin (0.2-1.3) mg/dL AST (14-36) U/L ALT (9-52) U/L Alkaline Phosphatase (38-126) U/L NT-Pro-B Natriuret Pep (0-900) pg/mL Total Protein (6.3-8.3) g/dL Albumin (3.5-5.0) g/dL Globulin (2.2-3.9) gm/dL Albumin/Globulin Ratio (1.0-2.1) Blood Type Antibody Screen Antibody Identification Antigen Identification 05/31/17 Range/Units 00:42 WBC (4.8-10.8) K/uL RBC (3.80-5.20) Mil/uL Hgb (11.0-16.0) g/dL Hct (34.0-47.0) % MCV (81.0-99.0) fL MCH (27.0-31.0) pg MCHC (33.0-37.0) g/dL RDW (11.5-14.5) % Plt Count (130-400) K/uL MPV (7.2-11.7) fL Neut % (Auto) (50.0-75.0) % Lymph % (Auto) (20.0-40.0) % Richardson % (Auto) (0.0-10.0) % Eos % (Auto) (0.0-4.0) % Baso % (Auto) (0.0-2.0) % Neut # (Auto) (1.8-7.0) K/uL Lymph # (Auto) (1.0-4.3) K/uL Richardson # (Auto) (0.0-0.8) K/uL Eos # (Auto) (0.0-0.7) K/uL Baso # (Auto) (0.0-0.2) K/uL Neutrophils % (Manual) (50-75) % Lymphocytes % (Manual) (20-40) % Monocytes % (Manual) (0-10) % Eosinophils % (Manual) (0-4) % Basophils % (Manual) (0-2) % Platelet Estimate (NORMAL) Large Platelets Anisocytosis (manual) PT (9.7-12.2) SECONDS INR APTT (21-34) SECONDS Sodium (132-148) mmol/L Potassium (3.6-5.2) mmol/L Chloride (98-107) mmol/L Carbon Dioxide (22-30) mmol/L Anion Gap (10-20) BUN (7-17) mg/dL Creatinine (0.7-1.2) mg/dL Est GFR ( Amer) Est GFR (Non-Af Amer) Random Glucose (65-105) mg/dL Lactic Acid (0.7-2.1) mmol/L Calcium (8.6-10.4) mg/dl Phosphorus (2.5-4.5) mg/dL Magnesium (1.6-2.3) mg/dL Total Bilirubin (0.2-1.3) mg/dL AST (14-36) U/L ALT (9-52) U/L Alkaline Phosphatase (38-126) U/L NT-Pro-B Natriuret Pep (0-900) pg/mL Total Protein (6.3-8.3) g/dL Albumin (3.5-5.0) g/dL Globulin (2.2-3.9) gm/dL Albumin/Globulin Ratio (1.0-2.1) Blood Type B POSITIVE Antibody Screen Positive Antibody Identification Anti Fyb Antigen Identification Fyb Antigen - NEGATIVE Laboratory Results - last 24 hr 05/31/17 05/31/17 05/31/17 00:42 15:19 15:19 WBC 13.0 H RBC 2.34 L Hgb 7.3 L Hct 21.2 L MCV 90.6 D MCH 31.2 H MCHC 34.4 RDW 16.5 H Plt Count 153 MPV 9.1 Neut % (Auto) Lymph % (Auto) Richardson % (Auto) Eos % (Auto) Baso % (Auto) Neut # (Auto) Lymph # (Auto) Richardson # (Auto) Eos # (Auto) Baso # (Auto) Neutrophils % (Manual) Lymphocytes % (Manual) Monocytes % (Manual) Eosinophils % (Manual) Basophils % (Manual) Platelet Estimate Large Platelets Anisocytosis (manual) PT 22.0 H D INR 1.9 D APTT 41 H D Sodium Potassium Chloride Carbon Dioxide Anion Gap BUN Creatinine Est GFR ( Amer) Est GFR (Non-Af Amer) Random Glucose Lactic Acid Calcium Phosphorus Magnesium Total Bilirubin AST ALT Alkaline Phosphatase NT-Pro-B Natriuret Pep Total Protein Albumin Globulin Albumin/Globulin Ratio Blood Type B POSITIVE Antibody Screen Positive Antibody Identification Anti Fyb Antigen Identification Fyb Antigen - NEGATIVE 06/01/17 06/01/17 06/01/17 06:34 06:34 06:34 WBC 13.0 H RBC 2.89 L Hgb 8.9 L Hct 25.9 L MCV 89.4 MCH 30.8 MCHC 34.5 RDW 15.9 H Plt Count 157 MPV 9.5 Neut % (Auto) 83.6 H Lymph % (Auto) 9.7 L Richardson % (Auto) 5.7 Eos % (Auto) 0.6 Baso % (Auto) 0.4 Neut # (Auto) 10.9 H Lymph # (Auto) 1.3 Richardson # (Auto) 0.7 Eos # (Auto) 0.1 Baso # (Auto) 0.1 Neutrophils % (Manual) 81 H Lymphocytes % (Manual) 11 L Monocytes % (Manual) 6 Eosinophils % (Manual) 1 Basophils % (Manual) 1 Platelet Estimate Normal Large Platelets Present Anisocytosis (manual) Slight PT 21.2 H INR 1.9 APTT 35 H D Sodium 144 Potassium 3.5 L Chloride 113 H Carbon Dioxide 20 L Anion Gap 15 BUN 11 Creatinine 0.7 Est GFR ( Amer) > 60 Est GFR (Non-Af Amer) > 60 Random Glucose 101 Lactic Acid Calcium 8.2 L Phosphorus 2.1 L Magnesium 1.8 Total Bilirubin 3.8 H AST 38 H ALT 20 Alkaline Phosphatase 50 NT-Pro-B Natriuret Pep 4740 H Total Protein 6.4 Albumin 3.1 L Globulin 3.4 Albumin/Globulin Ratio 0.9 L Blood Type Antibody Screen Antibody Identification Antigen Identification 06/01/17 06:39 WBC RBC Hgb Hct MCV MCH MCHC RDW Plt Count MPV Neut % (Auto) Lymph % (Auto) Richardson % (Auto) Eos % (Auto) Baso % (Auto) Neut # (Auto) Lymph # (Auto) Richardson # (Auto) Eos # (Auto) Baso # (Auto) Neutrophils % (Manual) Lymphocytes % (Manual) Monocytes % (Manual) Eosinophils % (Manual) Basophils % (Manual) Platelet Estimate Large Platelets Anisocytosis (manual) PT INR APTT Sodium Potassium Chloride Carbon Dioxide Anion Gap BUN Creatinine Est GFR ( Amer) Est GFR (Non-Af Amer) Random Glucose Lactic Acid 1.4 Calcium Phosphorus Magnesium Total Bilirubin AST ALT Alkaline Phosphatase NT-Pro-B Natriuret Pep Total Protein Albumin Globulin Albumin/Globulin Ratio Blood Type Antibody Screen Antibody Identification Antigen Identification Critical Care Progress Note - Nutrition Nutrition: Nutrition Category Date Time Status Heart Healthy Diet [DIET] Diets 05/31/17 Breakfast Active Assessment/Plan - Assessment and Plan (Free Text) Assessment: Patient is a 66 year old female with past medical history of afib on coumadin, Hypothyroidism, HTN presented to the hospital for abdominal pain for 5 days. Code sepsis was called, presumed source of UTI. Found to have supratherapeutic INR 12.6 with rectus sheath hematomas, cystitis on CT abd/pelvis. -Stable, afebrile -Complaining of Lower Abdominal pain -CT abd/pelvis showed multiple rectal sheath hematomas, cystitis (see full report) -Supratherapeutic INR: s/p Vitamin K, 2 units of FFP; INR today 1.9 -Anemia: s/p 2 units PRBCs, stool occult negative -Will repeat CBC this afternoon -Code sepsis: Lactate normalized, white blood cell count down to 13.0 today -Urine culture growing negative rods, awaiting sensitivities -Continue Zosyn 3.375mg IV Q8H -Continue Heart Healthy diet -Discontinue IV fluids -Discontinue garcia catheter, OOB to chair -BNP 1770 -> 4450 -Echo ordered, f/u report -Potassium 3.5, repleted -Bowel regimen: Colace 100mg PO BID -Will continue to observe in ICU -Plan discussed with Dr Peña <Gabi Peña - Last Filed: 06/01/17 18:47> CCU Objective - Vital Signs / Intake & Output Vital Signs (Last 4 hours): Vital Signs Temp Pulse Resp BP Pulse Ox 06/01/17 18:14 101 H 29 H 118/63 94 L 06/01/17 18:00 101 H 27 H 99 06/01/17 17:00 95 H 26 H 97 06/01/17 16:00 98.9 F 92 H 26 H 108/62 95 06/01/17 15:00 94 H 28 H 99 Intake and Output (Last 8hrs): Intake & Output 06/01/17 06/01/17 06/01/17 06:59 14:59 22:59 Intake Total 1085 1640 780 Output Total 220 1420 200 Balance 865 220 580 Weight 110 lb 8 oz Intake: Intake, IV Amount 520 140 Right Wrist 520 140 Oral 240 1500 780 Blood Product 325 Red Blood Cells Cpd As1 325 Lr Unit [id number] Output: Urine 220 1420 200 Urethral (Garcia) 220 1420 200 Stool 0 - Medications Active Medications: Active Medications Generic Name Dose Route Start Last Admin Trade Name Freq PRN Reason Stop Dose Admin Docusate Sodium 100 mg 06/01/17 10:00 06/01/17 18:06 Colace PO 100 mg BID SANTOS Administration Piperacillin Sod/Tazobactam 100 mls @ 200 mls/hr 05/31/17 10:00 06/01/17 17: 58 Sod 3.375 gm/ Sodium Chloride IVPB 200 mls/hr Q8H SANTOS Administration Protocol Oxycodone/Acetaminophen 1 tab 05/31/17 13:44 06/01/17 18:02 Percocet 5/325 Mg Tab PO 06/03/17 13:45 1 tab Q6H PRN Administration pain Pantoprazole Sodium 40 mg 05/31/17 10:00 06/01/17 09:29 Protonix Inj IVP 40 mg DAILY SANTOS Administration - Patient Studies Lab Studies: Microbiology Studies 05/31/17 04:50 MRSA Culture (Admit) - Final Naris MRSA NOT DETECTED 05/31/17 04:05 Urine Culture - Final Urine,Garcia Gram Negative Devon 05/31/17 01:54 Blood Culture - Preliminary Blood NO GROWTH AFTER 24 HOURS 05/31/17 01:54 Blood Culture - Preliminary Blood NO GROWTH AFTER 24 HOURS Lab Studies 06/01/17 06/01/17 06/01/17 Range/Units 16:57 06:39 06:34 WBC 13.6 H (4.8-10.8) K/uL RBC 2.92 L (3.80-5.20) Mil/uL Hgb 9.0 L (11.0-16.0) g/dL Hct 26.1 L (34.0-47.0) % MCV 89.4 (81.0-99.0) fL MCH 30.9 (27.0-31.0) pg MCHC 34.6 (33.0-37.0) g/dL RDW 16.2 H (11.5-14.5) % Plt Count 181 (130-400) K/uL MPV 8.4 (7.2-11.7) fL Neut % (Auto) 79.8 H (50.0-75.0) % Lymph % (Auto) 13.4 L (20.0-40.0) % Richardson % (Auto) 5.7 (0.0-10.0) % Eos % (Auto) 0.7 (0.0-4.0) % Baso % (Auto) 0.4 (0.0-2.0) % Neut # (Auto) 10.8 H (1.8-7.0) K/uL Lymph # (Auto) 1.8 (1.0-4.3) K/uL Richardson # (Auto) 0.8 (0.0-0.8) K/uL Eos # (Auto) 0.1 (0.0-0.7) K/uL Baso # (Auto) 0.1 (0.0-0.2) K/uL Neutrophils % (Manual) (50-75) % Lymphocytes % (Manual) (20-40) % Monocytes % (Manual) (0-10) % Eosinophils % (Manual) (0-4) % Basophils % (Manual) (0-2) % Platelet Estimate (NORMAL) Large Platelets Anisocytosis (manual) PT (9.7-12.2) SECONDS INR APTT (21-34) SECONDS Sodium 144 (132-148) mmol/L Potassium 3.5 L (3.6-5.2) mmol/L Chloride 113 H (98-107) mmol/L Carbon Dioxide 20 L (22-30) mmol/L Anion Gap 15 (10-20) BUN 11 (7-17) mg/dL Creatinine 0.7 (0.7-1.2) mg/dL Est GFR ( Amer) > 60 Est GFR (Non-Af Amer) > 60 Random Glucose 101 (65-105) mg/dL Lactic Acid 1.4 (0.7-2.1) mmol/L Calcium 8.2 L (8.6-10.4) mg/dl Phosphorus 2.1 L (2.5-4.5) mg/dL Magnesium 1.8 (1.6-2.3) mg/dL Total Bilirubin 3.8 H (0.2-1.3) mg/dL AST 38 H (14-36) U/L ALT 20 (9-52) U/L Alkaline Phosphatase 50 (38-126) U/L NT-Pro-B Natriuret Pep 4740 H (0-900) pg/mL Total Protein 6.4 (6.3-8.3) g/dL Albumin 3.1 L (3.5-5.0) g/dL Globulin 3.4 (2.2-3.9) gm/dL Albumin/Globulin Ratio 0.9 L (1.0-2.1) Blood Type Antibody Screen Antibody Identification Antigen Identification 06/01/17 06/01/17 05/31/17 Range/Units 06:34 06:34 00:42 WBC 13.0 H (4.8-10.8) K/uL RBC 2.89 L (3.80-5.20) Mil/uL Hgb 8.9 L (11.0-16.0) g/dL Hct 25.9 L (34.0-47.0) % MCV 89.4 (81.0-99.0) fL MCH 30.8 (27.0-31.0) pg MCHC 34.5 (33.0-37.0) g/dL RDW 15.9 H (11.5-14.5) % Plt Count 157 (130-400) K/uL MPV 9.5 (7.2-11.7) fL Neut % (Auto) 83.6 H (50.0-75.0) % Lymph % (Auto) 9.7 L (20.0-40.0) % Richardson % (Auto) 5.7 (0.0-10.0) % Eos % (Auto) 0.6 (0.0-4.0) % Baso % (Auto) 0.4 (0.0-2.0) % Neut # (Auto) 10.9 H (1.8-7.0) K/uL Lymph # (Auto) 1.3 (1.0-4.3) K/uL Richardson # (Auto) 0.7 (0.0-0.8) K/uL Eos # (Auto) 0.1 (0.0-0.7) K/uL Baso # (Auto) 0.1 (0.0-0.2) K/uL Neutrophils % (Manual) 81 H (50-75) % Lymphocytes % (Manual) 11 L (20-40) % Monocytes % (Manual) 6 (0-10) % Eosinophils % (Manual) 1 (0-4) % Basophils % (Manual) 1 (0-2) % Platelet Estimate Normal (NORMAL) Large Platelets Present Anisocytosis (manual) Slight PT 21.2 H (9.7-12.2) SECONDS INR 1.9 APTT 35 H D (21-34) SECONDS Sodium (132-148) mmol/L Potassium (3.6-5.2) mmol/L Chloride (98-107) mmol/L Carbon Dioxide (22-30) mmol/L Anion Gap (10-20) BUN (7-17) mg/dL Creatinine (0.7-1.2) mg/dL Est GFR ( Amer) Est GFR (Non-Af Amer) Random Glucose (65-105) mg/dL Lactic Acid (0.7-2.1) mmol/L Calcium (8.6-10.4) mg/dl Phosphorus (2.5-4.5) mg/dL Magnesium (1.6-2.3) mg/dL Total Bilirubin (0.2-1.3) mg/dL AST (14-36) U/L ALT (9-52) U/L Alkaline Phosphatase (38-126) U/L NT-Pro-B Natriuret Pep (0-900) pg/mL Total Protein (6.3-8.3) g/dL Albumin (3.5-5.0) g/dL Globulin (2.2-3.9) gm/dL Albumin/Globulin Ratio (1.0-2.1) Blood Type B POSITIVE Antibody Screen Positive Antibody Identification Anti Fyb Antigen Identification Fyb Antigen - NEGATIVE Laboratory Results - last 24 hr 05/31/17 06/01/17 06/01/17 00:42 06:34 06:34 WBC 13.0 H RBC 2.89 L Hgb 8.9 L Hct 25.9 L MCV 89.4 MCH 30.8 MCHC 34.5 RDW 15.9 H Plt Count 157 MPV 9.5 Neut % (Auto) 83.6 H Lymph % (Auto) 9.7 L Richardson % (Auto) 5.7 Eos % (Auto) 0.6 Baso % (Auto) 0.4 Neut # (Auto) 10.9 H Lymph # (Auto) 1.3 Richardson # (Auto) 0.7 Eos # (Auto) 0.1 Baso # (Auto) 0.1 Neutrophils % (Manual) 81 H Lymphocytes % (Manual) 11 L Monocytes % (Manual) 6 Eosinophils % (Manual) 1 Basophils % (Manual) 1 Platelet Estimate Normal Large Platelets Present Anisocytosis (manual) Slight PT 21.2 H INR 1.9 APTT 35 H D Sodium Potassium Chloride Carbon Dioxide Anion Gap BUN Creatinine Est GFR ( Amer) Est GFR (Non-Af Amer) Random Glucose Lactic Acid Calcium Phosphorus Magnesium Total Bilirubin AST ALT Alkaline Phosphatase NT-Pro-B Natriuret Pep Total Protein Albumin Globulin Albumin/Globulin Ratio Blood Type B POSITIVE Antibody Screen Positive Antibody Identification Anti Fyb Antigen Identification Fyb Antigen - NEGATIVE 06/01/17 06/01/17 06/01/17 06:34 06:39 16:57 WBC 13.6 H RBC 2.92 L Hgb 9.0 L Hct 26.1 L MCV 89.4 MCH 30.9 MCHC 34.6 RDW 16.2 H Plt Count 181 MPV 8.4 Neut % (Auto) 79.8 H Lymph % (Auto) 13.4 L Richardson % (Auto) 5.7 Eos % (Auto) 0.7 Baso % (Auto) 0.4 Neut # (Auto) 10.8 H Lymph # (Auto) 1.8 Richardson # (Auto) 0.8 Eos # (Auto) 0.1 Baso # (Auto) 0.1 Neutrophils % (Manual) Lymphocytes % (Manual) Monocytes % (Manual) Eosinophils % (Manual) Basophils % (Manual) Platelet Estimate Large Platelets Anisocytosis (manual) PT INR APTT Sodium 144 Potassium 3.5 L Chloride 113 H Carbon Dioxide 20 L Anion Gap 15 BUN 11 Creatinine 0.7 Est GFR ( Amer) > 60 Est GFR (Non-Af Amer) > 60 Random Glucose 101 Lactic Acid 1.4 Calcium 8.2 L Phosphorus 2.1 L Magnesium 1.8 Total Bilirubin 3.8 H AST 38 H ALT 20 Alkaline Phosphatase 50 NT-Pro-B Natriuret Pep 4740 H Total Protein 6.4 Albumin 3.1 L Globulin 3.4 Albumin/Globulin Ratio 0.9 L Blood Type Antibody Screen Antibody Identification Antigen Identification Critical Care Progress Note - Nutrition Nutrition: Nutrition Category Date Time Status Heart Healthy Diet [DIET] Diets 05/31/17 Breakfast Active Attending/Attestation - Attestation I have personally seen and examined this patient.: Yes I have fully participated in the care of the patient.: Yes I have reviewed all pertinent clinical information: Yes Notes (Text): 06/01/17 18:46 pt is doing well c/o pain oob to chair will transfer to floor
--- NOTE | 2017-06-01 11:56 | CARD ---
APPROVED REPORT EKG Measurement Heart [id number] <Conclusion> Atrial fibrillation with rapid ventricular response with premature ventricular or aberrantly conducted complexes Posterior infarct, age undetermined ST & T wave abnormality, consider inferior ischemia Abnormal ECG
[2017-06-01 17:00] LABS: BASO # 0.1 K/uL (0.0-0.2); BASO % 0.4 % (0.0-2.0); EOS # 0.1 K/uL (0.0-0.7); EOS % 0.7 % (0.0-4.0); LYMPH # 1.8 K/uL (1.0-4.3); LYMPH % 13.4 % (20.0-40.0); MEAN CELL VOLUME 89.4 fL (81.0-99.0); MEAN CORPUSCULAR HEMOGLOBIN 30.9 pg (27.0-31.0); MEAN CORPUSCULAR HGB CONC 34.6 g/dL (33.0-37.0); MEAN PLATELET VOLUME 8.4 fL (7.2-11.7); MONO # 0.8 K/uL (0.0-0.8); MONO % 5.7 % (0.0-10.0); NEUT # 10.8 K/uL (1.8-7.0); NEUT % 79.8 % (50.0-75.0); NRBC % 0.1 % (0.0-2.0); RBC 2.92 Mil/uL (3.80-5.20); RED CELL DISTRIBUTION WIDTH 16.2 % (11.5-14.5); WHITE BLOOD COUNT 13.6 K/uL (4.8-10.8)
[2017-06-02] MEDS: Piperacillin/Tazobact 3.375 GM in Sodium Chloride 100 ML IVPB SCH ×3 (01:17→17:05)
[2017-06-02 06:29] LABS: BASO # 0.1 K/uL (0.0-0.2); BASO % 0.6 % (0.0-2.0); EOS # 0.2 K/uL (0.0-0.7); EOS % 2.3 % (0.0-4.0); HEMOGLOBIN 9.2 g/dL (11.0-16.0); LYMPH # 1.2 K/uL (1.0-4.3); LYMPH % 11.2 % (20.0-40.0); MEAN CELL VOLUME 89.5 fL (81.0-99.0); MEAN CORPUSCULAR HEMOGLOBIN 31.9 pg (27.0-31.0); MEAN CORPUSCULAR HGB CONC 35.7 g/dL (33.0-37.0); MONO # 0.7 K/uL (0.0-0.8); MONO % 6.4 % (0.0-10.0); NEUT # 8.2 K/uL (1.8-7.0); NEUT % 79.5 % (50.0-75.0); RBC 2.87 Mil/uL (3.80-5.20); RED CELL DISTRIBUTION WIDTH 16.1 % (11.5-14.5); WHITE BLOOD COUNT 10.3 K/uL (4.8-10.8)
[2017-06-02 06:31] LABS: SQUAMOUS EPITHIAL 3 /hpf (0-5); URINE BILIRUBIN NEGATIVE (NEGATIVE); URINE BLOOD NEGATIVE (NEGATIVE); URINE CLARITY Clear (Clear); URINE COLOR Yellow (YELLOW); URINE GLUCOSE (UA) NORMAL (Normal); URINE LEUKOCYTE ESTERASE TRACE Leu/uL (Negative); URINE PROTEIN NEGATIVE (NEGATIVE)
[2017-06-02 06:34] LABS: INR 1.8; PROTHROMBIN TIME 20.6 SECONDS (9.7-12.2)
[2017-06-02 06:42] LABS: ALB/GLOB RATIO 0.9 (1.0-2.1); ALBUMIN 3.1 g/dL (3.5-5.0); ALT/SGPT 16 U/L (9-52); AST/SGOT 35 U/L (14-36); BLOOD UREA NITROGEN 7 mg/dL (7-17); CALCIUM 8.3 mg/dl (8.6-10.4); GFR AFRICAN-AMERICAN > 60; GFR NON-AFRICAN AMERICAN > 60
[2017-06-02 06:49] LABS: B-TYPE NATRIURETIC PEPTIDE 4550 pg/mL (0-900)
[2017-06-02] MEDS: Potassium Chloride 20 mEq ER Tab PO SCH ×3 (08:00→14:53)
[2017-06-02] MEDS ORDERED: POLYETHYLENE GLYCOL 3350 17 GM/Dose PACKET PO ONE (08:31)
[2017-06-02] MEDS: Oxycodone/Acetaminophen 5/325 mg Tab PO PRN (08:47)
[2017-06-02] MEDS ORDERED: Potassium & Sodium Phosphate PO ONE (09:30)
--- NOTE | 2017-06-02 10:20 | CP.CCUPN ---
<Lolly Flannery - Last Filed: 06/02/17 10:33> CCU Subjective - Physician Review Subjective (Free Text): 06/02/17 10:18 Patient seen and examined at bedside. Per nursing, no acute events overnight. Patient has been afebrile, abdominal pain improved, 5/10 on pain scale. Urine culture growing gram negative rods. Appetite better this morning, still no BM. CCU Objective - Vital Signs / Intake & Output Vital Signs (Last 4 hours): Vital Signs Temp Pulse Resp BP Pulse Ox 06/02/17 08:00 98.7 F 80 19 121/60 97 06/02/17 07:53 84 19 121/60 97 06/02/17 07:00 87 18 97 06/02/17 06:53 131/31 L Intake and Output (Last 8hrs): Intake & Output 06/01/17 06/02/17 06/02/17 22:59 06:59 14:59 Intake Total 830 200 240 Output Total 200 100 Balance 630 100 240 Weight 50.122 kg Intake: Intake, IV Amount 100 Right Wrist 100 Oral 830 100 240 Output: Urine 200 100 Urethral (Dang) 200 100 Stool 0 Other: # Voids Urethral (Dang) 1 - Physical Exam Head: Positive for: Atraumatic, Normocephalic Pupils: Positive for: PERRL Extroacular Muscles: Positive for: EOMI Conjunctiva: Positive for: Normal Mouth: Positive for: Moist Mucous Membranes Neck: Positive for: Normal Range of Motion Respiratory/Chest: Positive for: Clear to Auscultation, Good Air Exchange. Negative for: Respiratory Distress Cardiovascular: Positive for: Normal S1, S2, Tachycardic Abdomen: Positive for: Tenderness (Lower abdomen), Normal Bowel Sounds Upper Extremity: Positive for: Normal Inspection Lower Extremity: Positive for: Normal Inspection Skin: Positive for: Warm, Dry, Normal Color Psychiatric: Positive for: Alert, Oriented x 3 - Medications Active Medications: Active Medications Generic Name Dose Route Start Last Admin Trade Name Freq PRN Reason Stop Dose Admin Docusate Sodium 100 mg 06/02/17 07:30 06/02/17 08:49 Colace PO 100 mg AC SANTOS Administration Piperacillin Sod/Tazobactam 100 mls @ 200 mls/hr 05/31/17 10:00 06/02/17 01: 17 Sod 3.375 gm/ Sodium Chloride IVPB 200 mls/hr Q8H SANTOS Administration Protocol Metoclopramide HCl 5 mg 06/02/17 07:30 06/02/17 08:00 Reglan IVP 5 mg AC SANTOS Administration Oxycodone/Acetaminophen 1 tab 05/31/17 13:44 06/02/17 08:47 Percocet 5/325 Mg Tab PO 06/03/17 13:45 1 tab Q6H PRN Administration pain Pantoprazole Sodium 40 mg 05/31/17 10:00 06/01/17 09:29 Protonix Inj IVP 40 mg DAILY SANTOS Administration Potassium Chloride 40 meq 06/02/17 07:30 06/02/17 08:00 K-Dur 20 Meq Er Tab PO 06/02/17 11:31 40 meq Q4H SANTOS Administration - Patient Studies Lab Studies: Microbiology Studies 05/31/17 01:54 Blood Culture - Preliminary Blood NO GROWTH AFTER 48 HOURS 05/31/17 01:54 Blood Culture - Preliminary Blood NO GROWTH AFTER 48 HOURS 05/31/17 04:50 MRSA Culture (Admit) - Final Naris MRSA NOT DETECTED 05/31/17 04:05 Urine Culture - Final Urine,Dang Gram Negative [place] Lab Studies 06/02/17 06/02/17 06/02/17 Range/Units 06:21 06:21 06:21 WBC (4.8-10.8) K/uL RBC (3.80-5.20) Mil/uL Hgb (11.0-16.0) g/dL Hct (34.0-47.0) % MCV (81.0-99.0) fL MCH (27.0-31.0) pg MCHC (33.0-37.0) g/dL RDW (11.5-14.5) % Plt Count (130-400) K/uL MPV (7.2-11.7) fL Neut % (Auto) (50.0-75.0) % Lymph % (Auto) (20.0-40.0) % Butts % (Auto) (0.0-10.0) % Eos % (Auto) (0.0-4.0) % Baso % (Auto) (0.0-2.0) % Neut # (Auto) (1.8-7.0) K/uL Lymph # (Auto) (1.0-4.3) K/uL Butts # (Auto) (0.0-0.8) K/uL Eos # (Auto) (0.0-0.7) K/uL Baso # (Auto) (0.0-0.2) K/uL PT 20.6 H (9.7-12.2) SECONDS INR 1.8 APTT 38 H (21-34) SECONDS Sodium 144 (132-148) mmol/L Potassium 3.5 L (3.6-5.2) mmol/L Chloride 109 H (98-107) mmol/L Carbon Dioxide 22 (22-30) mmol/L Anion Gap 16 (10-20) BUN 7 (7-17) mg/dL Creatinine 0.7 (0.7-1.2) mg/dL Est GFR ( Amer) > 60 Est GFR (Non-Af Amer) > 60 Random Glucose 79 (65-105) mg/dL Calcium 8.3 L (8.6-10.4) mg/dl Phosphorus 2.2 L (2.5-4.5) mg/dL Magnesium 1.8 (1.6-2.3) mg/dL Total Bilirubin 3.8 H (0.2-1.3) mg/dL AST 35 (14-36) U/L ALT 16 (9-52) U/L Alkaline Phosphatase 56 (38-126) U/L NT-Pro-B Natriuret Pep 4550 H (0-900) pg/mL Total Protein 6.5 (6.3-8.3) g/dL Albumin 3.1 L (3.5-5.0) g/dL Globulin 3.4 (2.2-3.9) gm/dL Albumin/Globulin Ratio 0.9 L (1.0-2.1) Urine Color Yellow (YELLOW) Urine Clarity Clear (Clear) Urine pH 7.0 (5.0-8.0) Ur Specific [place] 1.009 (1.003-1.030) Urine Protein Negative (NEGATIVE) mg/dL Urine Glucose (UA) Normal (Normal) mg/dL Urine Ketones Negative (NEGATIVE) mg/dL Urine Blood Negative (NEGATIVE) Urine Nitrate Negative (NEGATIVE) Urine Bilirubin Negative (NEGATIVE) Urine Urobilinogen 2.0 H (0.2-1.0) mg/dL Ur Leukocyte Esterase Trace (Negative) Krzysztof/uL Urine WBC (Auto) 5 (0-5) /hpf Urine RBC (Auto) < 1 (0-3) /hpf Ur Squamous Epith Cells 3 (0-5) /hpf 06/02/17 06/01/17 Range/Units 06:21 16:57 WBC 10.3 13.6 H (4.8-10.8) K/uL RBC 2.87 L 2.92 L (3.80-5.20) Mil/uL Hgb 9.2 L 9.0 L (11.0-16.0) g/dL Hct 25.7 L 26.1 L (34.0-47.0) % MCV 89.5 89.4 (81.0-99.0) fL MCH 31.9 H 30.9 (27.0-31.0) pg MCHC 35.7 34.6 (33.0-37.0) g/dL RDW 16.1 H 16.2 H (11.5-14.5) % Plt Count 177 181 (130-400) K/uL MPV 9.0 8.4 (7.2-11.7) fL Neut % (Auto) 79.5 H 79.8 H (50.0-75.0) % Lymph % (Auto) 11.2 L 13.4 L (20.0-40.0) % Butts % (Auto) 6.4 5.7 (0.0-10.0) % Eos % (Auto) 2.3 0.7 (0.0-4.0) % Baso % (Auto) 0.6 0.4 (0.0-2.0) % Neut # (Auto) 8.2 H 10.8 H (1.8-7.0) K/uL Lymph # (Auto) 1.2 1.8 (1.0-4.3) K/uL Butts # (Auto) 0.7 0.8 (0.0-0.8) K/uL Eos # (Auto) 0.2 0.1 (0.0-0.7) K/uL Baso # (Auto) 0.1 0.1 (0.0-0.2) K/uL PT (9.7-12.2) SECONDS INR APTT (21-34) SECONDS Sodium (132-148) mmol/L Potassium (3.6-5.2) mmol/L Chloride (98-107) mmol/L Carbon Dioxide (22-30) mmol/L Anion Gap (10-20) BUN (7-17) mg/dL Creatinine (0.7-1.2) mg/dL Est GFR ( Amer) Est GFR (Non-Af Amer) Random Glucose (65-105) mg/dL Calcium (8.6-10.4) mg/dl Phosphorus (2.5-4.5) mg/dL Magnesium (1.6-2.3) mg/dL Total Bilirubin (0.2-1.3) mg/dL AST (14-36) U/L ALT (9-52) U/L Alkaline Phosphatase (38-126) U/L NT-Pro-B Natriuret Pep (0-900) pg/mL Total Protein (6.3-8.3) g/dL Albumin (3.5-5.0) g/dL Globulin (2.2-3.9) gm/dL Albumin/Globulin Ratio (1.0-2.1) Urine Color (YELLOW) Urine Clarity (Clear) Urine pH (5.0-8.0) Ur Specific [place] (1.003-1.030) Urine Protein (NEGATIVE) mg/dL Urine Glucose (UA) (Normal) mg/dL Urine Ketones (NEGATIVE) mg/dL Urine Blood (NEGATIVE) Urine Nitrate (NEGATIVE) Urine Bilirubin (NEGATIVE) Urine Urobilinogen (0.2-1.0) mg/dL Ur Leukocyte Esterase (Negative) Krzysztof/uL Urine WBC (Auto) (0-5) /hpf Urine RBC (Auto) (0-3) /hpf Ur Squamous Epith Cells (0-5) /hpf Laboratory Results - last 24 hr 06/01/17 06/02/17 06/02/17 16:57 06:21 06:21 WBC 13.6 H 10.3 RBC 2.92 L 2.87 L Hgb 9.0 L 9.2 L Hct 26.1 L 25.7 L MCV 89.4 89.5 MCH 30.9 31.9 H MCHC 34.6 35.7 RDW 16.2 H 16.1 H Plt Count 181 177 MPV 8.4 9.0 Neut % (Auto) 79.8 H 79.5 H Lymph % (Auto) 13.4 L 11.2 L Butts % (Auto) 5.7 6.4 Eos % (Auto) 0.7 2.3 Baso % (Auto) 0.4 0.6 Neut # (Auto) 10.8 H 8.2 H Lymph # (Auto) 1.8 1.2 Butts # (Auto) 0.8 0.7 Eos # (Auto) 0.1 0.2 Baso # (Auto) 0.1 0.1 PT INR APTT Sodium 144 Potassium 3.5 L Chloride 109 H Carbon Dioxide 22 Anion Gap 16 BUN 7 Creatinine 0.7 Est GFR ( Amer) > 60 Est GFR (Non-Af Amer) > 60 Random Glucose 79 Calcium 8.3 L Phosphorus 2.2 L Magnesium 1.8 Total Bilirubin 3.8 H AST 35 ALT 16 Alkaline Phosphatase 56 NT-Pro-B Natriuret Pep 4550 H Total Protein 6.5 Albumin 3.1 L Globulin 3.4 Albumin/Globulin Ratio 0.9 L Urine Color Urine Clarity Urine pH Ur Specific [place] Urine Protein Urine Glucose (UA) Urine Ketones Urine Blood Urine Nitrate Urine Bilirubin Urine Urobilinogen Ur Leukocyte Esterase Urine WBC (Auto) Urine RBC (Auto) Ur Squamous Epith Cells 06/02/17 06/02/17 06:21 06:21 WBC RBC Hgb Hct MCV MCH MCHC RDW Plt Count MPV Neut % (Auto) Lymph % (Auto) Butts % (Auto) Eos % (Auto) Baso % (Auto) Neut # (Auto) Lymph # (Auto) Butts # (Auto) Eos # (Auto) Baso # (Auto) PT 20.6 H INR 1.8 APTT 38 H Sodium Potassium Chloride Carbon Dioxide Anion Gap BUN Creatinine Est GFR ( Amer) Est GFR (Non-Af Amer) Random Glucose Calcium Phosphorus Magnesium Total Bilirubin AST ALT Alkaline Phosphatase NT-Pro-B Natriuret Pep Total Protein Albumin Globulin Albumin/Globulin Ratio Urine Color Yellow Urine Clarity Clear Urine pH 7.0 Ur Specific [place] 1.009 Urine Protein Negative Urine Glucose (UA) Normal Urine Ketones Negative Urine Blood Negative Urine Nitrate Negative Urine Bilirubin Negative Urine Urobilinogen 2.0 H Ur Leukocyte Esterase Trace Urine WBC (Auto) 5 Urine RBC (Auto) < 1 Ur Squamous Epith Cells 3 Critical Care Progress Note - Nutrition Nutrition: Nutrition Category Date Time Status Heart Healthy Diet [DIET] Diets 05/31/17 Breakfast Active Assessment/Plan - Assessment and Plan (Free Text) Assessment: Patient is a 66 year old female with past medical history of afib on coumadin, Hypothyroidism, HTN presented to the hospital for abdominal pain for 5 days. Code sepsis was called, presumed source of UTI. Found to have supratherapeutic INR 12.6 with rectus sheath hematomas, cystitis on CT abd/pelvis. Supratherapeutic INR/Rectal Sheath Hematoma/Anemia (multifactorial) -Complaining of Lower Abdominal pain -CT abd/pelvis showed multiple rectal sheath hematomas, cystitis (see full report) -Supratherapeutic INR: s/p Vitamin K, 2 units of FFP; INR today 1.8 -Anemia: s/p 2 units PRBCs, hgb stable, stool occult negative Urinary Tract Infection/Cystitis -Code sepsis: Lactate normalized, leukocytosis resolved -Urine culture growing negative rods, awaiting sensitivities -Repeat UA normal, repeat Urine cx pending -Continue Zosyn 3.375mg IV Q8H -Continue Heart Healthy diet Bibasilar Atelectasis -CXR 05/31: poor inspiration with low lung volumes, crowded bronchovascular markings and mild bibasilar atelectasis -Repeat CXR 06/01 read pending -Encourage ISS use Elevated BNP -BNP 1770 -> 4740 -> 4550 -Echo preliminary read showed LVEF 43%, f/u official report Hypokalemia/Hypophosphotemia -Potassium 3.5, repleted -Phos 2.2, repleted Constipation -No BM in 5 days -Bowel regimen: Colace 100mg PO AC, Miralax 17gm x 1 dose Elevated T Bili -T Bili trending up, 2.0 -> 3.8 today; alk phos normal -CT abd/pelvic showed cholelithiasis, physiologically distended gallbladder -No RUQ pain PPX -Physical and Occupational therapy ordered -Protonix 40mg PO daily, SCDS -Will continue to observe in ICU Plan discussed with Dr Sullivan <Jordon Sullivan - Last Filed: 06/02/17 16:51> CCU Objective - Vital Signs / Intake & Output Vital Signs (Last 4 hours): Vital Signs Temp Pulse Resp BP Pulse Ox 06/02/17 16:00 98.5 F 88 18 131/80 100 06/02/17 15:53 90 22 131/80 99 06/02/17 15:00 95 H 21 98 06/02/17 14:53 93 H 22 103/60 100 06/02/17 14:00 98 H 19 91 L 06/02/17 13:53 96 H 19 128/71 97 06/02/17 13:00 90 20 100 06/02/17 12:53 88 13 123/75 96 Intake and Output (Last 8hrs): Intake & Output 06/02/17 06/02/17 06/02/17 06:59 14:59 22:59 Intake Total 200 1100 80 Output Total 100 1300 Balance 100 -200 80 Weight 110 lb 8 oz Intake: Intake, IV Amount 100 100 Right Wrist 100 100 Oral 100 1000 80 Output: Urine 100 1300 Urethral (Dang) 100 1300 Stool 0 Other: # Voids Urethral (Dang) 1 - Medications Active Medications: Active Medications Generic Name Dose Route Start Last Admin Trade Name Freq PRN Reason Stop Dose Admin Docusate Sodium 100 mg 06/02/17 07:30 06/02/17 16:42 Colace PO 100 mg AC SANTOS Administration Piperacillin Sod/Tazobactam 100 mls @ 200 mls/hr 05/31/17 10:00 06/02/17 10: 00 Sod 3.375 gm/ Sodium Chloride IVPB 200 mls/hr Q8H SANTOS Administration Protocol Metoclopramide HCl 5 mg 06/02/17 07:30 06/02/17 16:42 Reglan IVP 5 mg AC SANTOS Administration Oxycodone/Acetaminophen 1 tab 05/31/17 13:44 06/02/17 08:47 Percocet 5/325 Mg Tab PO 06/03/17 13:45 1 tab Q6H PRN Administration pain Pantoprazole Sodium 40 mg 05/31/17 10:00 06/02/17 10:27 Protonix Inj IVP 40 mg DAILY SANTOS Administration - Patient Studies Lab Studies: Microbiology Studies 05/31/17 01:54 Blood Culture - Preliminary Blood NO GROWTH AFTER 48 HOURS 05/31/17 01:54 Blood Culture - Preliminary Blood NO GROWTH AFTER 48 HOURS Lab Studies 06/02/17 06/02/17 06/02/17 Range/Units 06:21 06:21 06:21 WBC (4.8-10.8) K/uL RBC (3.80-5.20) Mil/uL Hgb (11.0-16.0) g/dL Hct (34.0-47.0) % MCV (81.0-99.0) fL MCH (27.0-31.0) pg MCHC (33.0-37.0) g/dL RDW (11.5-14.5) % Plt Count (130-400) K/uL MPV (7.2-11.7) fL Neut % (Auto) (50.0-75.0) % Lymph % (Auto) (20.0-40.0) % Butts % (Auto) (0.0-10.0) % Eos % (Auto) (0.0-4.0) % Baso % (Auto) (0.0-2.0) % Neut # (Auto) (1.8-7.0) K/uL Lymph # (Auto) (1.0-4.3) K/uL Butts # (Auto) (0.0-0.8) K/uL Eos # (Auto) (0.0-0.7) K/uL Baso # (Auto) (0.0-0.2) K/uL PT 20.6 H (9.7-12.2) SECONDS INR 1.8 APTT 38 H (21-34) SECONDS Sodium 144 (132-148) mmol/L Potassium 3.5 L (3.6-5.2) mmol/L Chloride 109 H (98-107) mmol/L Carbon Dioxide 22 (22-30) mmol/L Anion Gap 16 (10-20) BUN 7 (7-17) mg/dL Creatinine 0.7 (0.7-1.2) mg/dL Est GFR ( Amer) > 60 Est GFR (Non-Af Amer) > 60 Random Glucose 79 (65-105) mg/dL Calcium 8.3 L (8.6-10.4) mg/dl Phosphorus 2.2 L (2.5-4.5) mg/dL Magnesium 1.8 (1.6-2.3) mg/dL Total Bilirubin 3.8 H (0.2-1.3) mg/dL AST 35 (14-36) U/L ALT 16 (9-52) U/L Alkaline Phosphatase 56 (38-126) U/L NT-Pro-B Natriuret Pep 4550 H (0-900) pg/mL Total Protein 6.5 (6.3-8.3) g/dL Albumin 3.1 L (3.5-5.0) g/dL Globulin 3.4 (2.2-3.9) gm/dL Albumin/Globulin Ratio 0.9 L (1.0-2.1) Urine Color Yellow (YELLOW) Urine Clarity Clear (Clear) Urine pH 7.0 (5.0-8.0) Ur Specific [place] 1.009 (1.003-1.030) Urine Protein Negative (NEGATIVE) mg/dL Urine Glucose (UA) Normal (Normal) mg/dL Urine Ketones Negative (NEGATIVE) mg/dL Urine Blood Negative (NEGATIVE) Urine Nitrate Negative (NEGATIVE) Urine Bilirubin Negative (NEGATIVE) Urine Urobilinogen 2.0 H (0.2-1.0) mg/dL Ur Leukocyte Esterase Trace (Negative) Krzysztof/uL Urine WBC (Auto) 5 (0-5) /hpf Urine RBC (Auto) < 1 (0-3) /hpf Ur Squamous Epith Cells 3 (0-5) /hpf 06/02/17 06/01/17 Range/Units 06:21 16:57 WBC 10.3 13.6 H (4.8-10.8) K/uL RBC 2.87 L 2.92 L (3.80-5.20) Mil/uL Hgb 9.2 L 9.0 L (11.0-16.0) g/dL Hct 25.7 L 26.1 L (34.0-47.0) % MCV 89.5 89.4 (81.0-99.0) fL MCH 31.9 H 30.9 (27.0-31.0) pg MCHC 35.7 34.6 (33.0-37.0) g/dL RDW 16.1 H 16.2 H (11.5-14.5) % Plt Count 177 181 (130-400) K/uL MPV 9.0 8.4 (7.2-11.7) fL Neut % (Auto) 79.5 H 79.8 H (50.0-75.0) % Lymph % (Auto) 11.2 L 13.4 L (20.0-40.0) % Butts % (Auto) 6.4 5.7 (0.0-10.0) % Eos % (Auto) 2.3 0.7 (0.0-4.0) % Baso % (Auto) 0.6 0.4 (0.0-2.0) % Neut # (Auto) 8.2 H 10.8 H (1.8-7.0) K/uL Lymph # (Auto) 1.2 1.8 (1.0-4.3) K/uL Butts # (Auto) 0.7 0.8 (0.0-0.8) K/uL Eos # (Auto) 0.2 0.1 (0.0-0.7) K/uL Baso # (Auto) 0.1 0.1 (0.0-0.2) K/uL PT (9.7-12.2) SECONDS INR APTT (21-34) SECONDS Sodium (132-148) mmol/L Potassium (3.6-5.2) mmol/L Chloride (98-107) mmol/L Carbon Dioxide (22-30) mmol/L Anion Gap (10-20) BUN (7-17) mg/dL Creatinine (0.7-1.2) mg/dL Est GFR ( Amer) Est GFR (Non-Af Amer) Random Glucose (65-105) mg/dL Calcium (8.6-10.4) mg/dl Phosphorus (2.5-4.5) mg/dL Magnesium (1.6-2.3) mg/dL Total Bilirubin (0.2-1.3) mg/dL AST (14-36) U/L ALT (9-52) U/L Alkaline Phosphatase (38-126) U/L NT-Pro-B Natriuret Pep (0-900) pg/mL Total Protein (6.3-8.3) g/dL Albumin (3.5-5.0) g/dL Globulin (2.2-3.9) gm/dL Albumin/Globulin Ratio (1.0-2.1) Urine Color (YELLOW) Urine Clarity (Clear) Urine pH (5.0-8.0) Ur Specific [place] (1.003-1.030) Urine Protein (NEGATIVE) mg/dL Urine Glucose (UA) (Normal) mg/dL Urine Ketones (NEGATIVE) mg/dL Urine Blood (NEGATIVE) Urine Nitrate (NEGATIVE) Urine Bilirubin (NEGATIVE) Urine Urobilinogen (0.2-1.0) mg/dL Ur Leukocyte Esterase (Negative) Krzysztof/uL Urine WBC (Auto) (0-5) /hpf Urine RBC (Auto) (0-3) /hpf Ur Squamous Epith Cells (0-5) /hpf Laboratory Results - last 24 hr 06/01/17 06/02/17 06/02/17 16:57 06:21 06:21 WBC 13.6 H 10.3 RBC 2.92 L 2.87 L Hgb 9.0 L 9.2 L Hct 26.1 L 25.7 L MCV 89.4 89.5 MCH 30.9 31.9 H MCHC 34.6 35.7 RDW 16.2 H 16.1 H Plt Count 181 177 MPV 8.4 9.0 Neut % (Auto) 79.8 H 79.5 H Lymph % (Auto) 13.4 L 11.2 L Butts % (Auto) 5.7 6.4 Eos % (Auto) 0.7 2.3 Baso % (Auto) 0.4 0.6 Neut # (Auto) 10.8 H 8.2 H Lymph # (Auto) 1.8 1.2 Butts # (Auto) 0.8 0.7 Eos # (Auto) 0.1 0.2 Baso # (Auto) 0.1 0.1 PT INR APTT Sodium 144 Potassium 3.5 L Chloride 109 H Carbon Dioxide 22 Anion Gap 16 BUN 7 Creatinine 0.7 Est GFR ( Amer) > 60 Est GFR (Non-Af Amer) > 60 Random Glucose 79 Calcium 8.3 L Phosphorus 2.2 L Magnesium 1.8 Total Bilirubin 3.8 H AST 35 ALT 16 Alkaline Phosphatase 56 NT-Pro-B Natriuret Pep 4550 H Total Protein 6.5 Albumin 3.1 L Globulin 3.4 Albumin/Globulin Ratio 0.9 L Urine Color Urine Clarity Urine pH Ur Specific [place] Urine Protein Urine Glucose (UA) Urine Ketones Urine Blood Urine Nitrate Urine Bilirubin Urine Urobilinogen Ur Leukocyte Esterase Urine WBC (Auto) Urine RBC (Auto) Ur Squamous Epith Cells 06/02/17 06/02/17 06:21 06:21 WBC RBC Hgb Hct MCV MCH MCHC RDW Plt Count MPV Neut % (Auto) Lymph % (Auto) Butts % (Auto) Eos % (Auto) Baso % (Auto) Neut # (Auto) Lymph # (Auto) Butts # (Auto) Eos # (Auto) Baso # (Auto) PT 20.6 H INR 1.8 APTT 38 H Sodium Potassium Chloride Carbon Dioxide Anion Gap BUN Creatinine Est GFR ( Amer) Est GFR (Non-Af Amer) Random Glucose Calcium Phosphorus Magnesium Total Bilirubin AST ALT Alkaline Phosphatase NT-Pro-B Natriuret Pep Total Protein Albumin Globulin Albumin/Globulin Ratio Urine Color Yellow Urine Clarity Clear Urine pH 7.0 Ur Specific [place] 1.009 Urine Protein Negative Urine Glucose (UA) Normal Urine Ketones Negative Urine Blood Negative Urine Nitrate Negative Urine Bilirubin Negative Urine Urobilinogen 2.0 H Ur Leukocyte Esterase Trace Urine WBC (Auto) 5 Urine RBC (Auto) < 1 Ur Squamous Epith Cells 3 Critical Care Progress Note - Nutrition Nutrition: Nutrition Category Date Time Status Heart Healthy Diet [DIET] Diets 05/31/17 Breakfast Active Attending/Attestation - Attestation I have personally seen and examined this patient.: Yes I have fully participated in the care of the patient.: Yes I have reviewed all pertinent clinical information: Yes Notes (Text): 06/02/17 16:47 patient seen and examined in the intensive care unit. Being treated for urosepsis Status post transfusion off FFP and packed RBCs Hematoma is resolving Continue antibiotics Follow-up H&H
--- NOTE | 2017-06-02 11:57 | RAD ---
PROCEDURE: CHEST RADIOGRAPH, 1 VIEW HISTORY: follow up COMPARISON: 05/31/2017 FINDINGS: LUNGS: Atelectatic changes at both bases new findings. PLEURA: No pneumothorax or pleural fluid seen. CARDIOVASCULAR: Cardiomegaly. Mitral valve prosthesis identified. OSSEOUS STRUCTURES: No significant abnormalities. VISUALIZED UPPER ABDOMEN: Normal. OTHER FINDINGS: None. IMPRESSION: New atelectatic/infiltrative changes at the lung bases
--- NOTE | 2017-06-02 12:35 | CARD ---
APPROVED REPORT EXAM: Two-dimensional and M-mode echocardiogram with Doppler and color Doppler. Other Information Quality : Technically LimitedRhythm : INDICATION sepsis 2D DIMENSIONS IVSd1.2 (0.7-1.1cm)LVDd3.3 (3.9-5.9cm) PWd1.1 (0.7-1.1cm)LVDs2.6 (2.5-4.0cm) FS (%) 20.8 %LVEF (%)43.4 (>50%) M-Mode DIMENSIONS Left Atrium (MM)6.02 (2.5-4.0cm)Aortic Root3.17 (2.2-3.7cm) Aortic Cusp Exc.0.99 (1.5-2.0cm) Aortic Valve AI P 1/2 [id number] Mitral Valve MV E Qkmazskq977.6cm/sMV A Znynmqgb80.0cm/sMV [id number] E/A ratio2.6MVA (PHT)2.67cm2 TDI E/Lateral E'0.0E/Medial E'0.0 Tricuspid Valve TR Peak [id number]/sTR Peak Gr.[id number] LEFT VENTRICLE The left ventricle is normal size. There is normal left ventricular wall thickness. The systolic function is moderately impaired. Significant regional wall motion abnormalities noted. Tissue Doppler imaging reveals severe left ventricular diastolic dysfunction. No left ventricle thrombus noted on this study. There is no ventricular septal defect visualized. There is no left ventricular aneurysm. There is no mass noted in the left ventricle. RIGHT VENTRICLE The right ventricle is normal size. There is normal right ventricular wall thickness. ATRIA The left atrium is moderately dilated. The right atrium size is normal. AORTIC VALVE The aortic valve is calcified and displays decreased opening. There is mild aortic regurgitation. MITRAL VALVE The mitral valve is not well visualized. There is no mitral valve regurgitation noted. TRICUSPID VALVE The tricuspid valve is normal in structure. There is trace to mild tricuspid regurgitation. GREAT VESSELS The aortic root displays mild to moderate sclerocalcific changes of the aortic root. PERICARDIAL EFFUSION There is no pericardial effusion. <Conclusion> The systolic function is moderately impaired. Significant regional wall motion abnormalities noted. Tissue Doppler imaging reveals severe left ventricular diastolic dysfunction. The left atrium is moderately dilated. There is mild aortic regurgitation. The mitral valve is not well visualized. TECHNICALLY DIFFICULT STUDY.
--- NOTE | 2017-06-03 01:38 | CP.PCM.PN ---
Subjective - Date & Time of Evaluation Date of Evaluation: 06/01/17 Time of Evaluation: 19:00 - Subjective Subjective: Pt admitted to ICU and started on IV abx. Pt appears tow be sleepy today, but tolerated all ministrations. Appetite still poor consuming 20-50% of her meal. Pt still non-ambulatory today, though with less pain. Pt also had not had a BM. Objective - Vital Signs/Intake and Output Vital Signs (last 24 hours): Temp Pulse Resp BP Pulse Ox 98.9 F 84 20 122/80 100 06/03/17 00:00 06/03/17 00:00 06/03/17 00:00 06/02/17 23:53 06/03/17 00:00 Intake and Output: 06/02/17 06/03/17 18:59 06:59 Intake Total 1420 50 Output Total 1300 1 Balance 120 49 - Medications Medications: Current Medications Docusate Sodium (Colace) 100 mg PO AC [facility] Last Admin: 06/02/17 16:42 Dose: 100 mg Piperacillin Sod/Tazobactam (Sod 3.375 gm/ Sodium Chloride) 100 mls @ 200 mls/ hr IVPB Q8H [facility] PRN Reason: Protocol Last Admin: 06/02/17 17:05 Dose: 200 mls/hr Metoclopramide HCl (Reglan) 5 mg IVP AC [facility] Last Admin: 06/02/17 16:42 Dose: 5 mg Oxycodone/Acetaminophen (Percocet 5/325 Mg Tab) 1 tab PO Q6H PRN PRN Reason: pain Stop: 06/03/17 13:45 Last Admin: 06/02/17 08:47 Dose: 1 tab Pantoprazole Sodium (Protonix Inj) 40 mg IVP DAILY [facility] Last Admin: 06/02/17 10:27 Dose: 40 mg - Labs Labs: 06/02/17 06:21 06/02/17 06:21 PT 20.6 SECONDS (9.7-12.2) H 06/02/17 06:21 INR 1.8 06/02/17 06:21 APTT 38 SECONDS (21-34) H 06/02/17 06:21 - Constitutional Appears: No Acute Distress, Other (lethargic and sleepy) - Head Exam Head Exam: NORMAL INSPECTION - Eye Exam Eye Exam: Normal appearance Pupil Exam: NORMAL ACCOMODATION - ENT Exam ENT Exam: Mucous Membranes Moist - Neck Exam Neck Exam: Normal Inspection - Respiratory Exam Respiratory Exam: Clear to Ausculation Bilateral, NORMAL BREATHING PATTERN - Cardiovascular Exam Cardiovascular Exam: REGULAR RHYTHM - GI/Abdominal Exam GI & Abdominal Exam: Hypoactive Bowel Sounds - Rectal Exam Rectal Exam: Deferred - Extremities Exam Extremities Exam: Normal Capillary Refill, Normal Inspection - Back Exam Back Exam: NORMAL INSPECTION - Neurological Exam Neurological Exam: Alert, Awake, CN II-XII Intact (oriented x 2 only (person and place) ) Neuro motor strength exam: Left Upper Extremity: 4, Right Upper Extremity: 4 - Psychiatric Exam Psychiatric exam: Flat Affect, Normal Affect, Normal Mood - Skin Skin Exam: Dry, Intact, Normal Color, Warm Assessment and Plan - Assessment and Plan (Free Text) Assessment: 1. rectus sheath hematoma 2ndry to coagulopathy: hgb climbing, no shortness of breath 2. anemia: improving 3. anorexia: start mirtazapine tonight 4. chronic cystitis: re-check US bladder in 6 weeks 5. s/p mitral valve replacement: emphasized importance of monitoring INR; advised family to buy their own INR machine to allow home readings; pt understands the gravity of what may befall her if she slips up again and does not check her coumadin 6. constipation: resolved. pt moving her bowels daily now.
[2017-06-03] MEDS: Piperacillin/Tazobact 3.375 GM in Sodium Chloride 100 ML IVPB SCH ×3 (02:03→17:09)
[2017-06-03 06:10] LABS: BASO % 0.3 % (0.0-2.0); EOS # 0.3 K/uL (0.0-0.7); EOS % 4.2 % (0.0-4.0); HEMOGLOBIN 9.3 g/dL (11.0-16.0); LYMPH % 12.5 % (20.0-40.0); MEAN CELL VOLUME 89.6 fL (81.0-99.0); MEAN CORPUSCULAR HEMOGLOBIN 31.3 pg (27.0-31.0); MEAN PLATELET VOLUME 8.4 fL (7.2-11.7); MONO # 0.5 K/uL (0.0-0.8); MONO % 5.9 % (0.0-10.0); NEUT # 6.5 K/uL (1.8-7.0); NEUT % 77.1 % (50.0-75.0); RBC 2.97 Mil/uL (3.80-5.20); RED CELL DISTRIBUTION WIDTH 16.3 % (11.5-14.5); WHITE BLOOD COUNT 8.4 K/uL (4.8-10.8)
[2017-06-03 06:26] LABS: INR 1.7
[2017-06-03 06:34] LABS: ALBUMIN 3.1 g/dL (3.5-5.0); ALT/SGPT 15 U/L (9-52); AST/SGOT 29 U/L (14-36); BLOOD UREA NITROGEN 7 mg/dL (7-17); CALCIUM 8.2 mg/dl (8.6-10.4); GFR AFRICAN-AMERICAN > 60; GFR NON-AFRICAN AMERICAN > 60
--- NOTE | 2017-06-03 10:54 | CP.CCUPN ---
<Lolly Flannery - Last Filed: 06/03/17 10:59> CCU Subjective - Physician Review Subjective (Free Text): 06/03/17 10:53 Patient seen and examined at bedside. Per nursing no acute events overnight. Patient states having lower abdominal pain, rated 5/10. She is out of bed to chair, tolerating diet. Had a BM last night. Offers no other complaints. CCU Objective - Vital Signs / Intake & Output Intake and Output (Last 8hrs): Intake & Output 06/02/17 06/03/17 06/03/17 22:59 06:59 14:59 Intake Total 370 390 Output Total 1 400 Balance 369 -10 Weight 49.895 kg Intake: Intake, IV Amount 100 Right Wrist 100 Oral 370 290 Output: Urine 400 Urethral (Dang) 400 Urine/Stool Mix 1 Other: # Voids Urethral (Dang) 1 - Physical Exam Head: Positive for: Atraumatic, Normocephalic Pupils: Positive for: PERRL Extroacular Muscles: Positive for: EOMI Conjunctiva: Positive for: Normal Mouth: Positive for: Moist Mucous Membranes Neck: Positive for: Normal Range of Motion Respiratory/Chest: Positive for: Clear to Auscultation, Good Air Exchange. Negative for: Respiratory Distress Cardiovascular: Positive for: Normal S1, S2, Tachycardic Abdomen: Positive for: Tenderness (Lower abdomen), Normal Bowel Sounds Upper Extremity: Positive for: Normal Inspection Lower Extremity: Positive for: Normal Inspection Skin: Positive for: Warm, Dry, Normal Color Psychiatric: Positive for: Alert, Oriented x 3 - Medications Active Medications: Active Medications Generic Name Dose Route Start Last Admin Trade Name Freq PRN Reason Stop Dose Admin Docusate Sodium 100 mg 06/02/17 07:30 06/03/17 06:46 Colace PO 100 mg AC SANTOS Administration Piperacillin Sod/Tazobactam 100 mls @ 200 mls/hr 05/31/17 10:00 06/03/17 02: 03 Sod 3.375 gm/ Sodium Chloride IVPB 200 mls/hr Q8H SANTOS Administration Protocol Oxycodone/Acetaminophen 1 tab 05/31/17 13:44 06/02/17 08:47 Percocet 5/325 Mg Tab PO 06/03/17 13:45 1 tab Q6H PRN Administration pain Pantoprazole Sodium 40 mg 05/31/17 10:00 06/02/17 10:27 Protonix Inj IVP 40 mg DAILY SANTOS Administration Polyethylene Glycol 17 gm 06/03/17 12:00 Miralax PO DAILY SANTOS - Patient Studies Lab Studies: Microbiology Studies 06/02/17 06:00 Urine Culture - Final Urine No Growth (<1,000 CFU/ML) 05/31/17 01:54 Blood Culture - Preliminary Blood NO GROWTH AFTER 3 DAYS 05/31/17 01:54 Blood Culture - Preliminary Blood NO GROWTH AFTER 3 DAYS Lab Studies 06/03/17 06/03/17 06/03/17 Range/Units 06:02 06:02 06:01 WBC 8.4 (4.8-10.8) K/uL RBC 2.97 L (3.80-5.20) Mil/uL Hgb 9.3 L (11.0-16.0) g/dL Hct 26.6 L (34.0-47.0) % MCV 89.6 (81.0-99.0) fL MCH 31.3 H (27.0-31.0) pg MCHC 35.0 (33.0-37.0) g/dL RDW 16.3 H (11.5-14.5) % Plt Count 225 (130-400) K/uL MPV 8.4 (7.2-11.7) fL Neut % (Auto) 77.1 H (50.0-75.0) % Lymph % (Auto) 12.5 L (20.0-40.0) % [place] % (Auto) 5.9 (0.0-10.0) % Eos % (Auto) 4.2 H (0.0-4.0) % Baso % (Auto) 0.3 (0.0-2.0) % Neut # (Auto) 6.5 (1.8-7.0) K/uL Lymph # (Auto) 1.0 (1.0-4.3) K/uL [place] # (Auto) 0.5 (0.0-0.8) K/uL Eos # (Auto) 0.3 (0.0-0.7) K/uL Baso # (Auto) 0.0 (0.0-0.2) K/uL PT 19.0 H (9.7-12.2) SECONDS INR 1.7 APTT 39 H (21-34) SECONDS Sodium 139 (132-148) mmol/L Potassium 3.8 (3.6-5.2) mmol/L Chloride 106 (98-107) mmol/L Carbon Dioxide 21 L (22-30) mmol/L Anion Gap 15 (10-20) BUN 7 (7-17) mg/dL Creatinine 0.7 (0.7-1.2) mg/dL Est GFR ( Amer) > 60 Est GFR (Non-Af Amer) > 60 Random Glucose 71 (65-105) mg/dL Calcium 8.2 L (8.6-10.4) mg/dl Phosphorus 2.9 (2.5-4.5) mg/dL Magnesium 1.7 (1.6-2.3) mg/dL Total Bilirubin 5.0 H (0.2-1.3) mg/dL AST 29 (14-36) U/L ALT 15 (9-52) U/L Alkaline Phosphatase 67 (38-126) U/L Total Protein 6.1 L (6.3-8.3) g/dL Albumin 3.1 L (3.5-5.0) g/dL Globulin 3.1 (2.2-3.9) gm/dL Albumin/Globulin Ratio 1.0 (1.0-2.1) Laboratory Results - last 24 hr 06/03/17 06/03/17 06/03/17 06:01 06:02 06:02 WBC 8.4 RBC 2.97 L Hgb 9.3 L Hct 26.6 L MCV 89.6 MCH 31.3 H MCHC 35.0 RDW 16.3 H Plt Count 225 MPV 8.4 Neut % (Auto) 77.1 H Lymph % (Auto) 12.5 L [place] % (Auto) 5.9 Eos % (Auto) 4.2 H Baso % (Auto) 0.3 Neut # (Auto) 6.5 Lymph # (Auto) 1.0 [place] # (Auto) 0.5 Eos # (Auto) 0.3 Baso # (Auto) 0.0 PT 19.0 H INR 1.7 APTT 39 H Sodium 139 Potassium 3.8 Chloride 106 Carbon Dioxide 21 L Anion Gap 15 BUN 7 Creatinine 0.7 Est GFR ( Amer) > 60 Est GFR (Non-Af Amer) > 60 Random Glucose 71 Calcium 8.2 L Phosphorus 2.9 Magnesium 1.7 Total Bilirubin 5.0 H AST 29 ALT 15 Alkaline Phosphatase 67 Total Protein 6.1 L Albumin 3.1 L Globulin 3.1 Albumin/Globulin Ratio 1.0 Critical Care Progress Note - Nutrition Nutrition: Nutrition Category Date Time Status Heart Healthy Diet [DIET] Diets 05/31/17 Breakfast Active Assessment/Plan - Assessment and Plan (Free Text) Assessment: Patient is a 66 year old female with past medical history of afib on coumadin, Hypothyroidism, HTN presented to the hospital for abdominal pain for 5 days. Code sepsis was called, presumed source of UTI. Found to have supratherapeutic INR 12.6 with rectus sheath hematomas, cystitis on CT abd/pelvis. Supratherapeutic INR/Rectal Sheath Hematoma/Anemia (multifactorial) -Complaining of Lower Abdominal pain -CT abd/pelvis showed multiple rectal sheath hematomas, cystitis (see full report) -Supratherapeutic INR: s/p Vitamin K, 2 units of FFP; INR today 1.7 -Anemia: s/p 2 units PRBCs, hgb stable, stool occult negative Urinary Tract Infection/Cystitis -Code sepsis: Lactate normalized, leukocytosis resolved -Urine culture growing negative rods, awaiting sensitivities -Repeat urine culture showing no growth -Continue Zosyn 3.375mg IV Q8H -Continue Heart Healthy diet Bibasilar Atelectasis -CXR 05/31: poor inspiration with low lung volumes, crowded bronchovascular markings and mild bibasilar atelectasis -CXR 2: New atelectatic/infiltrative changes at the lung bases -Encourage ISS use Elevated BNP -BNP 1770 -> 4740 -> 4550 -Echo preliminary read showed LVEF 43%, f/u official report Hypokalemia/Hypophosphotemia -Potassium within normal limits -Phos within normal limits Constipation -Had a BM last night -Bowel regimen: Colace 100mg PO AC, Miralax 17gm PO daily -Continue to monitor bowel function Elevated T Bili -T Bili trending up, 3.8 -> 5.0 today; alk phos normal -CT abd/pelvic showed cholelithiasis, physiologically distended gallbladder -No RUQ pain PPX -Physical and Occupational therapy -Protonix 40mg PO daily, SCDS -Will continue to observe in ICU Plan discussed with Dr Sullivan <Jordon Sullivan - Last Filed: 06/03/17 15:52> CCU Objective - Vital Signs / Intake & Output Vital Signs (Last 4 hours): Vital Signs Temp Pulse Resp BP Pulse Ox 06/03/17 14:00 97 H 13 96 06/03/17 13:53 95 H 11 L 121/70 97 06/03/17 13:00 100 H 20 100 06/03/17 12:53 103 H 16 113/49 L 99 06/03/17 12:00 98.8 F 06/03/17 11:53 96 H 26 H 106/72 99 Intake and Output (Last 8hrs): Intake & Output 06/03/17 06/03/17 06/03/17 06:59 14:59 22:59 Intake Total 390 412 Output Total 400 Balance -10 412 Weight 110 lb Intake: Intake, IV Amount 100 100 Right Wrist 100 100 Oral 290 312 Output: Urine 400 Urethral (Dang) 400 Other: # Voids Urethral (Dang) 1 Urine, Voided 1 # Bowel Movements 1 - Medications Active Medications: Active Medications Generic Name Dose Route Start Last Admin Trade Name Freq PRN Reason Stop Dose Admin Docusate Sodium 100 mg 06/02/17 07:30 06/03/17 11:14 Colace PO 100 mg AC SANTOS Administration Piperacillin Sod/Tazobactam 100 mls @ 200 mls/hr 05/31/17 10:00 06/03/17 11: 14 Sod 3.375 gm/ Sodium Chloride IVPB 200 mls/hr Q8H SANTOS Administration Protocol Pantoprazole Sodium 40 mg 06/04/17 10:00 Protonix Ec Tab PO DAILY SANTOS Polyethylene Glycol 17 gm 06/03/17 12:00 06/03/17 11:10 Miralax PO Not Given DAILY SANTOS - Patient Studies Lab Studies: Microbiology Studies 06/02/17 06:00 Urine Culture - Final Urine No Growth (<1,000 CFU/ML) 05/31/17 01:54 Blood Culture - Preliminary Blood NO GROWTH AFTER 3 DAYS 05/31/17 01:54 Blood Culture - Preliminary Blood NO GROWTH AFTER 3 DAYS Lab Studies 06/03/17 06/03/17 06/03/17 Range/Units 06:02 06:02 06:01 WBC 8.4 (4.8-10.8) K/uL RBC 2.97 L (3.80-5.20) Mil/uL Hgb 9.3 L (11.0-16.0) g/dL Hct 26.6 L (34.0-47.0) % MCV 89.6 (81.0-99.0) fL MCH 31.3 H (27.0-31.0) pg MCHC 35.0 (33.0-37.0) g/dL RDW 16.3 H (11.5-14.5) % Plt Count 225 (130-400) K/uL MPV 8.4 (7.2-11.7) fL Neut % (Auto) 77.1 H (50.0-75.0) % Lymph % (Auto) 12.5 L (20.0-40.0) % [place] % (Auto) 5.9 (0.0-10.0) % Eos % (Auto) 4.2 H (0.0-4.0) % Baso % (Auto) 0.3 (0.0-2.0) % Neut # (Auto) 6.5 (1.8-7.0) K/uL Lymph # (Auto) 1.0 (1.0-4.3) K/uL [place] # (Auto) 0.5 (0.0-0.8) K/uL Eos # (Auto) 0.3 (0.0-0.7) K/uL Baso # (Auto) 0.0 (0.0-0.2) K/uL PT 19.0 H (9.7-12.2) SECONDS INR 1.7 APTT 39 H (21-34) SECONDS Sodium 139 (132-148) mmol/L Potassium 3.8 (3.6-5.2) mmol/L Chloride 106 (98-107) mmol/L Carbon Dioxide 21 L (22-30) mmol/L Anion Gap 15 (10-20) BUN 7 (7-17) mg/dL Creatinine 0.7 (0.7-1.2) mg/dL Est GFR ( Amer) > 60 Est GFR (Non-Af Amer) > 60 Random Glucose 71 (65-105) mg/dL Calcium 8.2 L (8.6-10.4) mg/dl Phosphorus 2.9 (2.5-4.5) mg/dL Magnesium 1.7 (1.6-2.3) mg/dL Total Bilirubin 5.0 H (0.2-1.3) mg/dL AST 29 (14-36) U/L ALT 15 (9-52) U/L Alkaline Phosphatase 67 (38-126) U/L Total Protein 6.1 L (6.3-8.3) g/dL Albumin 3.1 L (3.5-5.0) g/dL Globulin 3.1 (2.2-3.9) gm/dL Albumin/Globulin Ratio 1.0 (1.0-2.1) Laboratory Results - last 24 hr 06/03/17 06/03/17 06/03/17 06:01 06:02 06:02 WBC 8.4 RBC 2.97 L Hgb 9.3 L Hct 26.6 L MCV 89.6 MCH 31.3 H MCHC 35.0 RDW 16.3 H Plt Count 225 MPV 8.4 Neut % (Auto) 77.1 H Lymph % (Auto) 12.5 L [place] % (Auto) 5.9 Eos % (Auto) 4.2 H Baso % (Auto) 0.3 Neut # (Auto) 6.5 Lymph # (Auto) 1.0 [place] # (Auto) 0.5 Eos # (Auto) 0.3 Baso # (Auto) 0.0 PT 19.0 H INR 1.7 APTT 39 H Sodium 139 Potassium 3.8 Chloride 106 Carbon Dioxide 21 L Anion Gap 15 BUN 7 Creatinine 0.7 Est GFR ( Amer) > 60 Est GFR (Non-Af Amer) > 60 Random Glucose 71 Calcium 8.2 L Phosphorus 2.9 Magnesium 1.7 Total Bilirubin 5.0 H AST 29 ALT 15 Alkaline Phosphatase 67 Total Protein 6.1 L Albumin 3.1 L Globulin 3.1 Albumin/Globulin Ratio 1.0 Critical Care Progress Note - Nutrition Nutrition: Nutrition Category Date Time Status Heart Healthy Diet [DIET] Diets 05/31/17 Breakfast Active Attending/Attestation - Attestation I have personally seen and examined this patient.: Yes I have fully participated in the care of the patient.: Yes I have reviewed all pertinent clinical information: Yes Notes (Text): 06/03/17 15:51 Patient seen and examinedin the intensive care unit. Continue IV antibiotics Clinically much improved Transfer to telemetry
[2017-06-03] MEDS: POLYETHYLENE GLYCOL 3350 17 GM/Dose PACKET PO SCH (11:10)
--- NOTE | 2017-06-03 13:30 | CARD ---
APPROVED REPORT EKG Measurement Heart [id number] <Conclusion> Atrial fibrillation - PVCs Nonspecific ST/T abnormality. Abnormal ECG
[2017-06-04] MEDS: Piperacillin/Tazobact 3.375 GM in Sodium Chloride 100 ML IVPB SCH ×3 (01:31→18:20)
[2017-06-04 06:26] LABS: BASO % 0.5 % (0.0-2.0); EOS # 0.3 K/uL (0.0-0.7); EOS % 4.8 % (0.0-4.0); HEMOGLOBIN 9.8 g/dL (11.0-16.0); LYMPH # 1.1 K/uL (1.0-4.3); MEAN CELL VOLUME 90.6 fL (81.0-99.0); MEAN CORPUSCULAR HGB CONC 35.3 g/dL (33.0-37.0); MEAN PLATELET VOLUME 8.5 fL (7.2-11.7); MONO # 0.5 K/uL (0.0-0.8); MONO % 6.9 % (0.0-10.0); NEUT % 71.8 % (50.0-75.0); RBC 3.07 Mil/uL (3.80-5.20); RED CELL DISTRIBUTION WIDTH 16.4 % (11.5-14.5); WHITE BLOOD COUNT 6.9 K/uL (4.8-10.8)
[2017-06-04 06:31] LABS: INR 1.6; PROTHROMBIN TIME 18.3 SECONDS (9.7-12.2)
[2017-06-04 06:53] LABS: ALB/GLOB RATIO 0.9 (1.0-2.1); ALBUMIN 3.3 g/dL (3.5-5.0); ALT/SGPT 21 U/L (9-52); AST/SGOT 33 U/L (14-36); BLOOD UREA NITROGEN 7 mg/dL (7-17); CALCIUM 8.6 mg/dl (8.6-10.4); GFR AFRICAN-AMERICAN > 60; GFR NON-AFRICAN AMERICAN > 60
[2017-06-04] MEDS: POLYETHYLENE GLYCOL 3350 17 GM/Dose PACKET PO SCH (09:19)
[2017-06-04] MEDS: Pantoprazole 40 mg EC Tab PO SCH (10:00)
[2017-06-04 12:35] LABS: INR 1.7; PROTHROMBIN TIME 19.2 SECONDS (9.7-12.2)
[2017-06-04 17:11] VITALS: RESP 20
--- NOTE | 2017-06-04 22:08 | CP.PCM.PN ---
Subjective - Date & Time of Evaluation Date of Evaluation: 06/02/17 Time of Evaluation: 20:00 - Subjective Subjective: Pt walked around the unit today for the first time. Still with mild abdominal pain and no bm , but does not need a warm compress on her abdomen to get her through the day. appetite increasing, and pt's mentation improving. Pt able to answer approrpiately and not as "spacey" as she was befire, Objective - Vital Signs/Intake and Output Vital Signs (last 24 hours): Temp Pulse Resp BP Pulse Ox 98.4 F 92 H 20 136/84 99 06/04/17 16:40 06/04/17 16:40 06/04/17 16:40 06/04/17 16:40 06/04/17 16:40 Intake and Output: 06/04/17 06/05/17 18:59 06:59 Intake Total 450 Balance 450 - Medications Medications: Current Medications Docusate Sodium (Colace) 100 mg PO AC [facility] Last Admin: 06/04/17 16:30 Dose: Not Given Piperacillin Sod/Tazobactam (Sod 3.375 gm/ Sodium Chloride) 100 mls @ 200 mls/ hr IVPB Q8H [facility] PRN Reason: Protocol Last Admin: 06/04/17 18:20 Dose: 200 mls/hr Pantoprazole Sodium (Protonix Ec Tab) 40 mg PO DAILY [facility] Last Admin: 06/04/17 10:00 Dose: 40 mg Polyethylene Glycol (Miralax) 17 gm PO DAILY [facility] Last Admin: 06/04/17 09:19 Dose: Not Given - Labs Labs: 06/04/17 06:15 06/04/17 06:15 PT 19.2 SECONDS (9.7-12.2) H 06/04/17 12:25 INR 1.7 06/04/17 12:25 APTT 39 SECONDS (21-34) H 06/04/17 06:15 - Constitutional Appears: No Acute Distress - Head Exam Head Exam: NORMOCEPHALIC - Eye Exam Eye Exam: Normal appearance Pupil Exam: NORMAL ACCOMODATION - ENT Exam ENT Exam: Mucous Membranes Moist, Normal Exam - Neck Exam Neck Exam: Full ROM, Normal Inspection - Respiratory Exam Respiratory Exam: Decreased Breath Sounds, NORMAL BREATHING PATTERN - Cardiovascular Exam Cardiovascular Exam: REGULAR RHYTHM - GI/Abdominal Exam GI & Abdominal Exam: Soft, Normal Bowel Sounds Additional comments: mild tenderness at anterior abdomen - Rectal Exam Rectal Exam: Deferred - Extremities Exam Extremities Exam: Full ROM, Normal Capillary Refill, Normal Inspection - Back Exam Back Exam: NORMAL INSPECTION - Neurological Exam Neurological Exam: CN II-XII Intact Neuro motor strength exam: Left Upper Extremity: 4, Right Upper Extremity: 4, Left Lower Extremity: 3, Right Lower Extremity: 3 - Psychiatric Exam Psychiatric exam: Flat Affect, Normal Affect, Normal Mood - Skin Skin Exam: Dry, Intact Assessment and Plan - Assessment and Plan (Free Text) Assessment: A/P 1. rectus sheath hematoma 2ndry to coagulopathy but improving; 2. anemia: improving 3. anorexia: start mirtazapine tonight for lack of appetite 4 lchronic cystitis: re-check US bladder in 6 weeks 5. s/p mitral valve replacement: emphasized importance of monitoring INR; advised family to buy their own INR machine to allow home readings; pt understands the gravity of what may befall her if she slips up again and does not check her INR 6.constipation: resolved. pt moving her bowels daily now.
[2017-06-05] MEDS: Piperacillin/Tazobact 3.375 GM in Sodium Chloride 100 ML IVPB SCH ×2 (01:55→10:00)
[2017-06-05] MEDS: Pantoprazole 40 mg EC Tab PO SCH (09:04)
[2017-06-05] MEDS: POLYETHYLENE GLYCOL 3350 17 GM/Dose PACKET PO SCH (09:04)
[2017-06-05 13:50] LABS: BASO % 0.7 % (0.0-2.0); EOS # 0.3 K/uL (0.0-0.7); EOS % 4.7 % (0.0-4.0); HEMOGLOBIN 10.3 g/dL (11.0-16.0); LYMPH # 1.4 K/uL (1.0-4.3); LYMPH % 19.5 % (20.0-40.0); MEAN CELL VOLUME 90.5 fL (81.0-99.0); MEAN CORPUSCULAR HGB CONC 34.2 g/dL (33.0-37.0); MEAN PLATELET VOLUME 8.1 fL (7.2-11.7); MONO # 0.6 K/uL (0.0-0.8); MONO % 8.8 % (0.0-10.0); NEUT # 4.8 K/uL (1.8-7.0); NEUT % 66.3 % (50.0-75.0); RBC 3.32 Mil/uL (3.80-5.20); RED CELL DISTRIBUTION WIDTH 16.8 % (11.5-14.5); WHITE BLOOD COUNT 7.3 K/uL (4.8-10.8)
[2017-06-05 14:22] LABS: B-TYPE NATRIURETIC PEPTIDE 1870 pg/mL (0-900)
[2017-06-05 14:29] LABS: ALB/GLOB RATIO 0.9 (1.0-2.1); ALBUMIN 3.5 g/dL (3.5-5.0); ALT/SGPT 23 U/L (9-52); AST/SGOT 54 U/L (14-36); BLOOD UREA NITROGEN 5 mg/dL (7-17); CALCIUM 8.8 mg/dl (8.6-10.4); GFR AFRICAN-AMERICAN > 60; GFR NON-AFRICAN AMERICAN > 60
[2017-06-05 22:09] LABS: INR 3.7
[2017-06-05 22:16] LABS: PROTHROMBIN TIME 44.9 SECONDS (9.7-12.2)
[2017-06-06] MEDS: Pantoprazole 40 mg EC Tab PO SCH (09:29)
[2017-06-06] MEDS: POLYETHYLENE GLYCOL 3350 17 GM/Dose PACKET PO SCH (09:29)
[2017-06-06 14:14] LABS: INR 3.5
[2017-06-06 14:17] LABS: PROTHROMBIN TIME 41.5 SECONDS (9.7-12.2)
--- NOTE | 2017-06-06 15:59 | CP.PCM.PN ---
Subjective - Date & Time of Evaluation Date of Evaluation: 06/06/17 Time of Evaluation: 15:54 - Subjective Subjective: REviewed evvents re: patient transfer to [facility] as requested by family yesterday. Had asked the family if pt had ambulacne benefits with her [employer] insurance, but family not aware. Asked the to check with their insurance company as well as touch base with SW re: to confirm ambulance and rehab benefits. Family says that they got stuck with huge bills when pt went to [facility] for pt's MV replacement. No word re: confirmation or denial of said issue. > Reviewed SW notes today after yesterday's note that said pt was referred to [facility] and [facility] re: [facility] for pt. notes today said pt had been accepted and set up for [facility] when medically stable. Was awaiting 1 pm b /w for PT/INR. Pt's INR terhapeutic and just a little above goal. Pt is medically stable and may be transferred to [facility] today. Attempted to confirm set up of pt at [facility], but nursing supervisor sawmill could not be found on my call at 345 pm. Hence pt would have to stay for the weekend and transferred on Thursday morning. Will re-check b/w on Thursday nightor Thursday early AM pror to DC to [facility].. Objective - Vital Signs/Intake and Output Vital Signs (last 24 hours): Temp Pulse Resp BP Pulse Ox 98.5 F 84 20 102/57 L 96 06/06/17 08:50 06/06/17 08:50 06/06/17 08:50 06/06/17 08:50 06/06/17 08:50 - Medications Medications: Current Medications Docusate Sodium (Colace) 100 mg PO AC [facility] Last Admin: 06/06/17 13:58 Dose: 100 mg Pantoprazole Sodium (Protonix Ec Tab) 40 mg PO DAILY [facility] Last Admin: 06/06/17 09:29 Dose: 40 mg Polyethylene Glycol (Miralax) 17 gm PO DAILY [facility] Last Admin: 06/06/17 09:29 Dose: 17 gm - Labs Labs: 06/05/17 13:45 06/05/17 13:45 PT 41.5 SECONDS (9.7-12.2) H* 06/06/17 13:57 INR 3.5 06/06/17 13:57 APTT 39 SECONDS (21-34) H 06/04/17 06:15 - Constitutional Appears: No Acute Distress - Head Exam Head Exam: NORMAL INSPECTION - Eye Exam Eye Exam: Normal appearance - ENT Exam ENT Exam: Mucous Membranes Moist, Normal Exam - Neck Exam Neck Exam: Normal Inspection - Respiratory Exam Respiratory Exam: Clear to Ausculation Bilateral, NORMAL BREATHING PATTERN - Cardiovascular Exam Cardiovascular Exam: REGULAR RHYTHM - GI/Abdominal Exam GI & Abdominal Exam: Normal Bowel Sounds - Rectal Exam Rectal Exam: NORMAL INSPECTION - Exam Exam: NORMAL INSPECTION Speculum exam: NORMAL SPECULUM EXAM Bimanual exam: NORMAL BIMANUAL EXAM - Extremities Exam Extremities Exam: Full ROM, Normal Inspection - Back Exam Back Exam: NORMAL INSPECTION - Neurological Exam Neurological Exam: Alert, CN II-XII Intact, Oriented x3 Neuro motor strength exam: Left Upper Extremity: 4, Right Upper Extremity: 4, Left Lower Extremity: 3, Right Lower Extremity: 3 - Skin Skin Exam: Dry, Intact, Normal Color, Warm Assessment and Plan - Assessment and Plan (Free Text) Assessment: Assessment: 1. rectus sheath hematoma 2ndry to coagulopathy: hgb climbing, no shortness of breath;impvoed; resolved 2. anemia: improving 3. anorexia: started mirtazapine; regining appetite 4. chronic cystitis: re-check US bladder in 6 weeks, repeat US in 2 weeks 5. s/p mitral valve replacement: emphasized importance of monitoring INR; advised family to buy their own INR machine to allow home readings; pt understands the gravity of what may befall her if she slips up again and does not check her coumadin 6. constipation: resolved.
--- NOTE | 2017-06-06 17:48 | CP.PCM.PN ---
Subjective - Date & Time of Evaluation Date of Evaluation: 06/03/17 Time of Evaluation: 17:49 - Subjective Subjective: Pt more awake today and increased appetite. No BM though and pt still with some abdominal pain, although not as bad as on admission. Pt's INR better after 2 FFP and vitamin K given. No active signs of bleeding, and hgb trending up. Objective - Vital Signs/Intake and Output Vital Signs (last 24 hours): Temp Pulse Resp BP Pulse Ox 98.3 F 85 20 123/71 96 06/06/17 15:22 06/06/17 15:22 06/06/17 15:22 06/06/17 15:22 06/06/17 15:22 - Medications Medications: Current Medications Docusate Sodium (Colace) 100 mg PO AC [facility] Last Admin: 06/06/17 17:38 Dose: 100 mg Pantoprazole Sodium (Protonix Ec Tab) 40 mg PO DAILY [facility] Last Admin: 06/06/17 09:29 Dose: 40 mg Polyethylene Glycol (Miralax) 17 gm PO DAILY [facility] Last Admin: 06/06/17 09:29 Dose: 17 gm - Labs Labs: 06/05/17 13:45 06/05/17 13:45 PT 41.5 SECONDS (9.7-12.2) H* 06/06/17 13:57 INR 3.5 06/06/17 13:57 APTT 39 SECONDS (21-34) H 06/04/17 06:15 - Constitutional Appears: No Acute Distress - Head Exam Head Exam: NORMAL INSPECTION - Eye Exam Eye Exam: Normal appearance Pupil Exam: NORMAL ACCOMODATION - ENT Exam ENT Exam: Mucous Membranes Moist, Normal Exam - Neck Exam Neck Exam: Normal Inspection - Respiratory Exam Respiratory Exam: Clear to Ausculation Bilateral, NORMAL BREATHING PATTERN - Cardiovascular Exam Cardiovascular Exam: REGULAR RHYTHM - GI/Abdominal Exam GI & Abdominal Exam: Soft, Normal Bowel Sounds - Rectal Exam Rectal Exam: Deferred - Extremities Exam Extremities Exam: Normal Inspection - Back Exam Back Exam: NORMAL INSPECTION - Neurological Exam Neurological Exam: Alert, Awake, CN II-XII Intact Neuro motor strength exam: Left Upper Extremity: 4, Right Upper Extremity: 4, Left Lower Extremity: 3, Right Lower Extremity: 3 - Psychiatric Exam Psychiatric exam: Flat Affect, Normal Affect - Skin Skin Exam: Dry, Intact, Normal Color, Warm Assessment and Plan - Assessment and Plan (Free Text) Assessment: A/P: 1. rectus sheath hematoma 2ndry to coagulopathy: hgb climbing, no shortness of breath; improved; resolved 2. anemia: improving 3. anorexia: started mirtazapine; regining appetite 4. chronic cystitis: re-check US bladder in 6 weeks, repeat US in 2 weeks 5. s/p mitral valve replacement: emphasized importance of monitoring INR; advised family to buy their own INR machine to allow home readings; pt understands the gravity of what may befall her if she slips up again and does not check her coumadin 6. constipation: tx ongoing.
--- NOTE | 2017-06-07 01:42 | CP.PCM.PN ---
Subjective - Date & Time of Evaluation Date of Evaluation: 06/04/17 Time of Evaluation: 22:05 - Subjective Subjective: Discussed with and pt plans for discharge and what to do next. Pt's son also present at bedside. Dsicussed how they all need to step up and make sure pt 's INR monitored and checked regularly to prevent repeat of this admission and internal bleeding. Suggested again that if that is a difficult propoositoion, then they should purchase their own INR machine which they can use to then relay the info to us at the office. > Pt continues to improve, and had BM today after giving prokinetic and osmotic laxative. Objective - Vital Signs/Intake and Output Vital Signs (last 24 hours): Temp Pulse Resp BP Pulse Ox 97.9 F 82 20 145/81 98 06/06/17 23:50 06/06/17 23:50 06/06/17 23:50 06/06/17 23:50 06/06/17 23:50 - Medications Medications: Current Medications Docusate Sodium (Colace) 100 mg PO AC [facility] Last Admin: 06/06/17 17:38 Dose: 100 mg Pantoprazole Sodium (Protonix Ec Tab) 40 mg PO DAILY [facility] Last Admin: 06/06/17 09:29 Dose: 40 mg Polyethylene Glycol (Miralax) 17 gm PO DAILY [facility] Last Admin: 06/06/17 09:29 Dose: 17 gm - Labs Labs: 06/05/17 13:45 06/05/17 13:45 PT 41.5 SECONDS (9.7-12.2) H* 06/06/17 13:57 INR 3.5 06/06/17 13:57 APTT 39 SECONDS (21-34) H 06/04/17 06:15 - Constitutional Appears: No Acute Distress - Head Exam Head Exam: NORMAL INSPECTION, NORMOCEPHALIC - Eye Exam Eye Exam: Normal appearance - ENT Exam ENT Exam: Mucous Membranes Moist, Normal Exam - Neck Exam Neck Exam: Full ROM, Normal Inspection. absent: Lymphadenopathy - Respiratory Exam Respiratory Exam: Clear to Ausculation Bilateral, NORMAL BREATHING PATTERN - Cardiovascular Exam Cardiovascular Exam: REGULAR RHYTHM, +S1, +S2. absent: Murmur - GI/Abdominal Exam GI & Abdominal Exam: Soft, Normal Bowel Sounds. absent: Tenderness - Rectal Exam Rectal Exam: Deferred - Extremities Exam Extremities Exam: Full ROM, Normal Capillary Refill, Normal Inspection. absent : Joint Swelling, Pedal Edema - Back Exam Back Exam: NORMAL INSPECTION - Neurological Exam Neurological Exam: Alert, Awake, CN II-XII Intact Neuro motor strength exam: Left Upper Extremity: 4, Right Upper Extremity: 4, Left Lower Extremity: 4, Right Lower Extremity: 4 - Psychiatric Exam Psychiatric exam: Normal Affect, Normal Mood - Skin Skin Exam: Dry, Intact, Normal Color, Warm Assessment and Plan - Assessment and Plan (Free Text) Assessment: A/P: 1. rectus sheath hematoma 2ndry to coagulopathy: improved, almost resolved 2. anemia: improving 3. anorexia: started mirtazapine; regining appetite 4. chronic cystitis: re-check US bladder in 6 weeks, repeat US in 2 weeks 5. s/p mitral valve replacement: emphasized importance of monitoring INR; advised family to buy their own INR machine to allow home readings; pt understands the gravity of what may befall her if she slips up again and does not check her coumadin 6. constipation: resolved, + BM.
[2017-06-07 16:51] LABS: INR 3.3
[2017-06-07 17:00] LABS: PROTHROMBIN TIME 38.8 SECONDS (9.7-12.2)
[2017-06-08 08:06] VITALS: BP 127/67; PULSE 84; TEMP 98.1; O2SAT 97
[2017-06-08] MEDS: Pantoprazole 40 mg EC Tab PO SCH (08:59)
[2017-06-08] MEDS: POLYETHYLENE GLYCOL 3350 17 GM/Dose PACKET PO SCH (08:59)
[2017-06-08 10:27] LABS: INR 2.9
--- NOTE | 2017-06-08 10:52 | CP.PCM.DIS ---
Provider - Provider Date of Admission: 05/31/17 03:43 Attending physician: Jose Souza MD Primary care physician: Jose Souza MD Consults: ]Critical Care Consults] Time Spent in preparation of Discharge (in minutes): 45 Diagnosis - Discharge Diagnosis (1) Constipation by delayed colonic transit Status: Acute Comment: improved, + BM daily to q2d now; advised tolet us knowif abdomen hurts 2ndry to absence of BM (2) Abdominal pain Status: Acute Comment: will follow INR for next weeek. (3) Abdominal wall hematoma Status: Acute (4) Coumadin toxicity Status: Acute (5) Sepsis Status: Acute (6) UTI (urinary tract infection) Status: Acute Hospital Course - Lab Results Lab Results: Micro Results 05/31/17 01:54 Blood Blood Culture - Final NO GROWTH AFTER 5 DAYS 05/31/17 01:54 Blood Gram Stain - Final TEST NOT PERFORMED 05/31/17 01:54 Blood Blood Culture - Final NO GROWTH AFTER 5 DAYS 05/31/17 01:54 Blood Gram Stain - Final TEST NOT PERFORMED 06/02/17 06:00 Urine Urine Culture - Final No Growth (<1,000 CFU/ML) 05/31/17 04:50 Naris MRSA Culture (Admit) - Final MRSA NOT DETECTED 05/31/17 04:05 Urine,Dang Urine Culture - Final Gram Negative Devon Most Recent Lab Values WBC 7.3 K/uL (4.8-10.8) 06/05/17 13:45 RBC 3.32 Mil/uL (3.80-5.20) L 06/05/17 13:45 Hgb 10.3 g/dL (11.0-16.0) L 06/05/17 13:45 Hct 30.1 % (34.0-47.0) L 06/05/17 13:45 MCV 90.5 fL (81.0-99.0) 06/05/17 13:45 MCH 31.0 pg (27.0-31.0) 06/05/17 13:45 MCHC 34.2 g/dL (33.0-37.0) 06/05/17 13:45 RDW 16.8 % (11.5-14.5) H 06/05/17 13:45 Plt Count 288 K/uL (130-400) 06/05/17 13:45 MPV 8.1 fL (7.2-11.7) 06/05/17 13:45 Neut % (Auto) 66.3 % (50.0-75.0) 06/05/17 13:45 Lymph % (Auto) 19.5 % (20.0-40.0) L 06/05/17 13:45 [place] % (Auto) 8.8 % (0.0-10.0) 06/05/17 13:45 Eos % (Auto) 4.7 % (0.0-4.0) H 06/05/17 13:45 Baso % (Auto) 0.7 % (0.0-2.0) 06/05/17 13:45 Neut # (Auto) 4.8 K/uL (1.8-7.0) 06/05/17 13:45 Lymph # (Auto) 1.4 K/uL (1.0-4.3) 06/05/17 13:45 [place] # (Auto) 0.6 K/uL (0.0-0.8) 06/05/17 13:45 Eos # (Auto) 0.3 K/uL (0.0-0.7) 06/05/17 13:45 Baso # (Auto) 0.0 K/uL (0.0-0.2) 06/05/17 13:45 Neutrophils % (Manual) 81 % (50-75) H 06/01/17 06:34 Lymphocytes % (Manual) 11 % (20-40) L 06/01/17 06:34 Monocytes % (Manual) 6 % (0-10) 06/01/17 06:34 Eosinophils % (Manual) 1 % (0-4) 06/01/17 06:34 Basophils % (Manual) 1 % (0-2) 06/01/17 06:34 Platelet Estimate Normal (NORMAL) 06/01/17 06:34 Large Platelets Present 06/01/17 06:34 RBC Morphology Normal 05/31/17 00:18 Anisocytosis (manual) Slight 06/01/17 06:34 PT 38.8 SECONDS (9.7-12.2) H* 06/07/17 16:36 INR 3.3 06/07/17 16:36 APTT 39 SECONDS (21-34) H 06/04/17 06:15 pO2 17 mm/Hg (30-55) L 05/31/17 00:31 VBG pH 7.29 (7.32-7.43) L 05/31/17 00:31 VBG pCO2 38 mmHg (40-60) L 05/31/17 00:31 VBG HCO3 16.8 mmol/L 05/31/17 00:31 VBG Total CO2 19.5 mmol/L (22-28) L 05/31/17 00:31 VBG O2 Sat (Calc) 22.9 % (40-65) L 05/31/17 00:31 VBG Base Excess -7.7 mmol/L (0.0-2.0) L 05/31/17 00:31 VBG Potassium 4.7 mmol/L (3.6-5.2) 05/31/17 00:31 Sodium 144.0 mmol/l (132-148) 05/31/17 00:31 Chloride 108.0 mmol/L (98-107) H 05/31/17 00:31 Glucose 192 mg/dl (65-105) H 05/31/17 00:31 Lactate 8.8 mmol/L (0.7-2.1) H* 05/31/17 00:31 Crit Value Called To Dr mary 05/31/17 00:31 Crit Value Called By Amy granados rt 05/31/17 00:31 Crit Value Read Back Y 05/31/17 00:31 Blood Gas Notified Time 47 05/31/17 00:31 Sodium 142 mmol/L (132-148) 06/05/17 13:45 Potassium 3.6 mmol/L (3.6-5.2) 06/05/17 13:45 Chloride 108 mmol/L (98-107) H 06/05/17 13:45 Carbon Dioxide 22 mmol/L (22-30) 06/05/17 13:45 Anion Gap 16 (10-20) 06/05/17 13:45 BUN 5 mg/dL (7-17) L 06/05/17 13:45 Creatinine 0.6 mg/dL (0.7-1.2) L 06/05/17 13:45 Est GFR ( Amer) > 60 06/05/17 13:45 Est GFR (Non-Af Amer) > 60 06/05/17 13:45 Random Glucose 95 mg/dL (65-105) 06/05/17 13:45 Lactic Acid 1.4 mmol/L (0.7-2.1) 06/01/17 06:39 Calcium 8.8 mg/dl (8.6-10.4) 06/05/17 13:45 Phosphorus 3.2 mg/dL (2.5-4.5) 06/04/17 06:15 Magnesium 2.0 mg/dL (1.6-2.3) 06/04/17 06:15 Iron 72 ug/dL (37-170) 05/31/17 08:24 TIBC 232 ug/dL (250-450) L 05/31/17 08:24 % Saturation 31 (20-55) 05/31/17 08:24 Total Bilirubin 3.4 mg/dL (0.2-1.3) H 06/05/17 13:45 AST 54 U/L (14-36) H D 06/05/17 13:45 ALT 23 U/L (9-52) 06/05/17 13:45 Alkaline Phosphatase 76 U/L (38-126) 06/05/17 13:45 NT-Pro-B Natriuret Pep 1870 pg/mL (0-900) H 06/05/17 13:45 Total Protein 7.6 g/dL (6.3-8.3) 06/05/17 13:45 Albumin 3.5 g/dL (3.5-5.0) 06/05/17 13:45 Globulin 4.0 gm/dL (2.2-3.9) H 06/05/17 13:45 Albumin/Globulin Ratio 0.9 (1.0-2.1) L 06/05/17 13:45 Lipase 86 U/L (23-300) 05/31/17 00:18 Vitamin B12 608 pg/mL (239-931) 05/31/17 06:01 Folate > 20.0 ng/mL 05/31/17 06:01 Venous Blood Potassium 4.7 mmol/L (3.6-5.2) 05/31/17 00:31 Urine Color Yellow (YELLOW) 06/02/17 06:21 Urine Clarity Clear (Clear) 06/02/17 06:21 Urine pH 7.0 (5.0-8.0) 06/02/17 06:21 Ur Specific [place] 1.009 (1.003-1.030) 06/02/17 06:21 Urine Protein Negative mg/dL (NEGATIVE) 06/02/17 06:21 Urine Glucose (UA) Normal mg/dL (Normal) 06/02/17 06:21 Urine Ketones Negative mg/dL (NEGATIVE) 06/02/17 06:21 Urine Blood Negative (NEGATIVE) 06/02/17 06:21 Urine Nitrate Negative (NEGATIVE) 06/02/17 06:21 Urine Bilirubin Negative (NEGATIVE) 06/02/17 06:21 Urine Urobilinogen 2.0 mg/dL (0.2-1.0) H 06/02/17 06:21 Ur Leukocyte Esterase Trace Krzysztof/uL (Negative) 06/02/17 06:21 Urine WBC (Auto) 5 /hpf (0-5) 06/02/17 06:21 Urine RBC (Auto) < 1 /hpf (0-3) 06/02/17 06:21 Ur Squamous Epith Cells 3 /hpf (0-5) 06/02/17 06:21 Urine Bacteria Rare (<OCC) 05/31/17 03:05 Stool Occult Blood Negative (NEGATIVE) 05/31/17 00:26 Blood Type B POSITIVE 05/31/17 00:42 Antibody Screen Positive 05/31/17 00:42 Antibody Identification Anti Fyb 05/31/17 00:42 Antigen Identification Fyb Antigen - NEGATIVE 05/31/17 00:42 Discharge Exam - Head Exam Head Exam: NORMAL INSPECTION, NORMOCEPHALIC Discharge Plan - Follow Up Plan Condition: GUARDED Disposition: REHAB FACILITY/REHAB UNIT Additional Instructions: 1. pls check bp for the next 1 week especially after PT and auscultate pt to see if you hear any irregularity in her heart beats (arrythmia). If so, please notify me immediately. 2.Check INR tomorrow, 06/09, and call me with results. Pt's last INR right now from 818 is 3.3...Goal is 2.5-3.0 Pt has a mechanical mitral valve and needs to be anticoagulated AT ALL TIMES. 3. ALL WARFARIN FOR THIS PATIENT MUST BE GIVEN 4 HOURS AFTER THE MEAL. Therefore if facillity protococal is to give warfarin with dinner AT 5-6 PM,, this must be moved to 10 PM 4. Pls make sure the last INR (today) and the thyroid profile are included in the papers to go to [facility]. 5. Pls write to admit under my service. 3. If i cannot answer your call, please send me a text on my cell.
[2017-06-08 10:53] LABS: PROTHROMBIN TIME 34.3 SECONDS (9.7-12.2)
[2017-06-08 12:19] LABS: FREE T4 1.46 ng/dL (0.78-2.19)
== END 2017-06-08 14:33 | DRG 872 ==
LOC: C.ER 23:20 → C.9I 05-31 03:43 → C.6T 06-04 16:33
PROVIDERS: ADMIT Family Medicine; ATTEND Family Medicine
DX: A41.9 Sepsis, unspecified organism (principal); J98.11 Atelectasis; D64.9 Anemia, unspecified; E03.9 Hypothyroidism, unspecified; E87.6 Hypokalemia; F02.80 Dementia in other diseases classified elsewhere, unspecified severity, without behavioral disturbance, psychotic disturbance, mood disturbance, and anxiety; G30.9 Alzheimer's disease, unspecified; I10 Essential (primary) hypertension; I48.91 Unspecified atrial fibrillation; K59.01 Slow transit constipation; Z79.01 Long term (current) use of anticoagulants; Z86.73 Personal history of transient ischemic attack (TIA), and cerebral infarction without residual deficits; Z95.2 Presence of prosthetic heart valve; N30.20 Other chronic cystitis without hematuria; K80.20 Calculus of gallbladder without cholecystitis without obstruction; T45.515A Adverse effect of anticoagulants, initial encounter; Y92.009 Unspecified place in unspecified non-institutional (private) residence as the place of occurrence of the external cause